=== PATIENT | male | born 1935 | race Caucasian/White ===

== ENCOUNTER 2017-02-07 09:45 | Observation (INO) | payer MEDICARE ==
[~2017-02-07] VITALS: Ht 180.3 cm; Wt 61.0 kg
[~2017-02-07 09:45] MED LIST: DICL75 PO; ESCI20TA PO; GABA400C5 PO; GLUCTAB PO; PROS5TAB2 PO; ROSU40 PO; TRAD5TAB PO; ULTR50TA PO
[2017-02-07 10:17] VITALS: BP 174/79; PULSE 83; RESP 18; TEMP 98.3; O2SAT 93
[2017-02-07] MEDS ORDERED: GABA300C5 PO (10:42)
[2017-02-07] MEDS ORDERED: FINA5TAB2 PO (10:42)
[2017-02-07] MEDS ORDERED: TRAM50TA PO (10:42)
[2017-02-07] MEDS ORDERED: ESCI20TA PO (10:45)
[2017-02-07] MEDS ORDERED: ROSU1TAB6 PO (10:45)
[2017-02-07] MEDS ORDERED: DICL75TA PO (10:45)
[2017-02-07] MEDS ORDERED: METF1000 PO (10:45)
[2017-02-07] MEDS ORDERED: TAMS0.4C4 PO (10:45)
[2017-02-07] MEDS: SODIUM CHLOR 0.9% 1000 ML INJ 1,000 ML IV SCH ×3 (10:48→13:03)
--- NOTE | 2017-02-07 10:58 | PD ---
HPI Chief Complaint: General Weakness Time Seen by Provider: 10:33 Travel History International Travel<30 days: No Contact w/Intl Traveler<30days: No Traveled to known affect area: No History of Present Illness HPI The patient is a 81-year-old male who presents to the emergency department for generalized weakness and multiple falls. 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 Robbins. The patient had a history of previous weakness and falls which improved after the shot was placed. The patient has had some weakness the last several days, they saw their physician on Friday, Dr. Harris, however, the patient is an related without difficulty at that time. However, cornea family the patient has fallen 7 times since last night and they found the patient on the floor this morning. The floor is carpeted, the patient denies any loss of consciousness. The patient complains of weakness the lower extremities and has difficulty going from a sitting to standing position it feels like his legs give out when he is ambulating. He denies any upper extremity weakness, but does complain of some generalized lethargy. He denies any current headache, nausea, vomiting, or abdominal pain. The patient denies any chest pain or shortness of breath. Symptoms are moderate, no known alleviating factors, possibly exacerbated by history of NPH which on placement. PFSH Past Medical History Arthritis: Yes Anxiety: Yes Depression: Yes Heart Rhythm Problems: No Cancer: Yes (MELANOMA ) Cardiovascular Problems: Yes (ARRHYTHMIA) High Cholesterol: Yes Chemotherapy: No Chest Pain: No Congestive Heart Failure: No Cerebrovascular Accident: No Diabetes: Yes (TYPE 2) Patient Takes Glucophage: Yes (METFORMIN ) Endocrine: Yes Genitourinary: No Hepatitis: No Immune Disorder: No Musculoskeletal: Yes (RIGHT KNEE REPLACEMENT) Neurologic: Yes (BALANCE DIFFICULTIES) Psychiatric: No Reproductive: No Respiratory: No Radiation Therapy: No Seizures: No Thyroid Disease: No Past Surgical History Surgical History: No Previous Surgery Abdominal Surgery: No AICD: No Cardiac Surgery: No Ear Surgery: No Endocrine Surgery: No Eye Surgery: Yes (BILATERAL CATARACT SURGERY ) Genitourinary Surgery: No Gynecologic Surgery: No Joint Replacement: Yes (RT KNEE) Oral Surgery: No Pacemaker: No Thoracic Surgery: No Other Surgery: Yes (R KNEE /CATARACT, SHUNT IN BRAIN ) Social History Alcohol Use: No (PT WAIFE STATES HE NO LONGER DRINKS ) Tobacco Use: No Substance Use: No Allergies-Medications (Allergen,Severity, Reaction): Coded Allergies: No Known Allergies (Verified , 02/07/17) Reported Meds & Prescriptions Reported Meds & Active Scripts Active Reported Tamsulosin (Tamsulosin HCl) 0.4 Mg Cap 0.4 Mg PO HS Escitalopram (Escitalopram Oxalate) 20 Mg Tab 20 Mg PO DAILY Diclofenac Sodium DR (Diclofenac Sodium) 75 Mg Tabdr 75 Mg PO BID Metformin (Metformin HCl) 1,000 Mg Tab 1,000 Mg PO BIDPC With meals Rosuvastatin (Rosuvastatin Calcium) 10 Mg Tab 10 Mg PO HS Gabapentin 300 Mg Cap 800 Mg PO TID Tramadol (Tramadol HCl) 50 Mg Tab 50 Mg PO Q6H PRN Finasteride 5 Mg Tab 5 Mg PO DAILY Do not crush. Review of Systems Except as stated in HPI: all other systems reviewed are Neg General / Constitutional: No: Fever Eyes: No: Visual changes HENT: No: Headaches, Lightheadedness, Neck Pain Cardiovascular: No: Chest Pain or Discomfort Respiratory: No: Shortness of Breath Gastrointestinal: No: Nausea, Vomiting, Abdominal Pain Musculoskeletal: Positive: Weakness Neurologic: Positive: Weakness Physical Exam Narrative GENERAL: Awake, alert, pleasant 81-year-old male who appears his stated age and is in no acute respiratory distress. SKIN: Focused skin assessment warm/dry. HEAD: Atraumatic. Normocephalic. No visible hematomas or areas of ecchymosis. EYES: Pupils equal and round. Pupils are 3 mm bilateral and reactive. ENT: No nasal bleeding or discharge. Mucous membranes pink and moist. NECK: Trachea midline. No JVD. CARDIOVASCULAR: Regular rate and rhythm. No murmur appreciated. RESPIRATORY: No accessory muscle use. Clear to auscultation. Breath sounds equal bilaterally. GASTROINTESTINAL: Abdomen soft, non-tender, nondistended. No rebound tenderness. MUSCULOSKELETAL: Well-healed scar of the anterior aspect of the right knee. Plantar flexion is 5 out of 5 bilateral. Flexion of the great toes is 5 out of 5 bilateral. Extension at the knees bilateral is 5 out of 5. Flexion of the hips bilaterals 5 out of 5. Upper 70 strength is 5 out of 5. NEUROLOGICAL: Awake and alert. No obvious cranial nerve deficits. Motor grossly within normal limits. Normal speech. Nonfocal. Oriented 4. PSYCHIATRIC: Appropriate mood and affect; insight and judgment normal. Data Data Last Documented VS Vital Signs Date Time Temp Pulse Resp B/P Pulse Ox O2 Delivery O2 Flow Rate FiO2 02/07/17 10:23 84 18 92 Room Air 02/07/17 10:17 98.3 174/79 Orders Electrocardiogram (02/07/17 10:48) Complete Blood Count With Diff (02/07/17 10:48) Comprehensive Metabolic Panel (02/07/17 10:48) Creatine Kinase (Cpk) (02/07/17 10:48) Prothrombin Time / Inr (Pt) (02/07/17 10:48) Act Partial Throm Time (Ptt) (02/07/17 10:48) Troponin I (02/07/17 10:48) Thyroid Stimulating Hormone (02/07/17 10:48) Urinalysis - C+S If Indicated (02/07/17 10:48) Chest, Single Ap (02/07/17 10:48) Ct Brain W/O Iv Contrast(Rout) (02/07/17 10:48) Blood Glucose (02/07/17 10:48) Ecg Monitoring (02/07/17 10:48) Iv Access Insert/Monitor (02/07/17 10:48) Oximetry (02/07/17 10:48) Sodium Chloride 0.9% Flush (Ns Flush) (02/07/17 11:00) Sodium Chlor 0.9% 1000 Ml Inj (Ns 1000 M (02/07/17 10:48) CKMB (02/07/17 11:03) CKMB% (02/07/17 11:03) Sodium Chlor 0.9% 1000 Ml Inj (Ns 1000 M (02/07/17 12:00) Admit To Inpatient (02/07/17 ) Code Status (02/07/17 12:37) Vital Signs (Adult) Q4H (02/07/17 12:37) Activity Oob With Assistance (02/07/17 12:37) Sodium Chloride 0.9% Flush (Ns Flush) (02/07/17 12:45) Sodium Chloride 0.9% Flush (Ns Flush) (02/07/17 21:00) Acetaminophen (Tylenol) (02/07/17 12:45) Ondansetron Inj (Zofran Inj) (02/07/17 12:45) Magnesium Hydroxide Liq (Milk Of Magnesi (02/07/17 12:45) Temazepam (Restoril) (02/07/17 12:45) Basic Metabolic Panel (Bmp) (02/08/17 06:00) Complete Blood Count With Diff (02/08/17 06:00) Pt Request For Service (02/07/17 12:37) Scd Bilateral/Knee High ANGEL LUIS.BID (02/07/17 12:37) Naloxone Inj (Narcan Inj) (02/07/17 12:45) Inpatient Certification (02/07/17 ) Diet 1999 Ada Cons Carb (02/07/17 Lunch) 1/2 Ns + Kcl 20 Meq Inj (1/2 Ns + Kcl 20 (02/07/17 13:00) Creatine Kinase (Cpk) (02/08/17 06:00) Consult Neurosurgery (02/07/17 ) Escitalopram (Lexapro) (02/08/17 09:00) Finasteride (Proscar) (02/08/17 09:00) Gabapentin (Neurontin) (02/07/17 13:00) Tamsulosin (Flomax) (02/07/17 21:00) (Nf) Rosuvastatin (02/07/17 21:00) Insulin Aspart Supplemtl Scale (Novolog (02/07/17 16:00) Gabapentin (Neurontin) (02/07/17 13:00) Labs Laboratory Tests Test 02/07/17 02/07/17 11:03 12:15 White Blood Count 5.9 TH/MM3 Red Blood Count 2.94 MIL/MM3 Hemoglobin 9.4 GM/DL Hematocrit 27.7 % Mean Corpuscular Volume 94.0 FL Mean Corpuscular Hemoglobin 31.9 PG Mean Corpuscular Hemoglobin 33.9 % Concent Red Cell Distribution Width 14.3 % Platelet Count 177 TH/MM3 Mean Platelet Volume 8.8 FL Neutrophils (%) (Auto) 68.5 % Lymphocytes (%) (Auto) 19.6 % Monocytes (%) (Auto) 8.5 % Eosinophils (%) (Auto) 2.7 % Basophils (%) (Auto) 0.7 % Neutrophils # (Auto) 4.0 TH/MM3 Lymphocytes # (Auto) 1.2 TH/MM3 Monocytes # (Auto) 0.5 TH/MM3 Eosinophils # (Auto) 0.2 TH/MM3 Basophils # (Auto) 0.0 TH/MM3 CBC Comment DIFF FINAL Differential Comment Prothrombin Time 10.9 SEC Prothromb Time International 1.0 RATIO Ratio Activated Partial 22.9 SEC Thromboplast Time Sodium Level 139 MEQ/L Potassium Level 4.8 MEQ/L Chloride Level 104 MEQ/L Carbon Dioxide Level 28.3 MEQ/L Anion Gap 7 MEQ/L Blood Urea Nitrogen 43 MG/DL Creatinine 2.32 MG/DL Estimat Glomerular Filtration 27 ML/MIN Rate Random Glucose 134 MG/DL Calcium Level 9.2 MG/DL Total Bilirubin 0.3 MG/DL Aspartate Amino Transf 44 U/L (AST/SGOT) Alanine Aminotransferase 32 U/L (ALT/SGPT) Alkaline Phosphatase 30 U/L Total Creatine Kinase 1828 U/L Creatine Kinase MB 11.1 NG/ML Creatine Kinase MB % 0.6 % Troponin I 0.09 NG/ML Total Protein 6.1 GM/DL Albumin 3.6 GM/DL Thyroid Stimulating Hormone 3.920 uIU/ML 3rd Gen Urine Color YELLOW Urine Turbidity CLEAR Urine pH 6.5 Urine Specific [place] 1.012 Urine Protein 100 mg/dL Urine Glucose (UA) TRACE mg/dL Urine Ketones NEG mg/dL Urine Occult Blood SMALL Urine Nitrite NEG Urine Bilirubin NEG Urine Urobilinogen LESS THAN 2.0 MG/DL Urine Leukocyte Esterase NEG Urine RBC 1 /hpf Urine WBC 2 /hpf Microscopic Urinalysis Comment CATH-CULT NOT IND MDM Medical Decision Making Medical Screen Exam Complete: Yes Emergency Medical Condition: Yes Medical Record Reviewed: Yes Interpretation(s) EKG reveals normal sinus rhythm with a rate of 75. Nonspecific ST-T wave changes. Differential Diagnosis Differential diagnosis includes normal pressure hydrocephalus, polymyalgia rheumatica, hyponatremia, UTI, pneumonia, subdural hemorrhage, intracranial hemorrhage, dehydration. Narrative Course IV was established, labs are drawn and sent, and the patient was placed on cardiac telemetry monitoring and continuous pulse oximetry monitoring. EKG was ordered and interpreted. CT of the brain was obtained. Chest x-ray was obtained. UA was sent to lab. The patient was placed on IV fluids. The patient's CPK was noted to be elevated greater than 1800, creatinine was elevated greater than 2.3. It appears the patient has mild renal insufficiency with secondary rhabdomyolysis, unsure if this is secondary to multiple falls or possibly statin therapy. Therefore, the patient was administered an IV fluid bolus. The patient's troponin is 0.09, this may be secondary to rhabdomyolysis. The patient has [facility], therefore, [facility] was paged for admission. Physician Communication Physician Communication [facility] was paged for admission. I discussed the patient with Dr. Stanton who agrees with admission. Diagnosis Primary Impression: Rhabdomyolysis Qualified Code: M62.82 - Non-traumatic rhabdomyolysis Additional Impression: Acute kidney injury Admitting Information Admitting Physician Requests: Admit Condition: Stable Louie Solorzano MD Feb 07, 2017 10:57
[2017-02-07] MEDS ORDERED: SODIUM CHLORIDE 0.9% FLUSH 10 ML FLUSH IVF PRN (11:00)
[2017-02-07 11:17] LABS: BASOPHIL % 0.7 % (0.0-2.0); EOSINOPHIL # 0.2 TH/MM3 (0-0.4); EOSINOPHIL % 2.7 % (0.0-4.0); HEMATOCRIT 27.7 % (39.0-51.0); HEMO FLAGS DIFF FINAL; LYMPH % 19.6 % (9.0-44.0); LYMPHOCYTE # 1.2 TH/MM3 (1.0-4.8); MEAN CORPUSCULAR HEMOGLOBIN 31.9 PG (27.0-34.0); MEAN CORPUSCULAR HGB CONC 33.9 % (32.0-36.0); MONO % 8.5 % (0.0-8.0); NEUT % 68.5 % (16.0-70.0); PLATELET COUNT 177 TH/MM3 (150-450); RED BLOOD COUNT 2.94 MIL/MM3 (4.50-5.90); RED CELL DISTRIBUTION WIDTH 14.3 % (11.6-17.2); WHITE BLOOD COUNT 5.9 TH/MM3 (4.0-11.0)
[2017-02-07 11:24] LABS: APTT (PATIENT) 22.9 SEC (24.3-30.1); PROTHROMBIN TIME - PATIENT 10.9 SEC (9.8-11.6)
[2017-02-07 11:29] LABS: ANION GAP 7 MEQ/L (5-15); AST (GOT) 44 U/L (15-37); BICARBONATE 28.3 MEQ/L (21.0-32.0); BLOOD UREA NITROGEN 43 MG/DL (7-18); CHLORIDE 104 MEQ/L (98-107); GLOMERULAR FILTRATION RATE 27 ML/MIN (>89); POTASSIUM 4.8 MEQ/L (3.5-5.1); SODIUM (NA) 139 MEQ/L (136-145)
--- NOTE | 2017-02-07 11:32 | RADRPT ---
EXAM DATE/TIME: 02/07/2017 10:56 [facility] COMPARISON: CHEST SINGLE AP, February 21, 2015, 16:27. INDICATIONS : Weakness, falling alot MEDICAL HISTORY : None. SURGICAL HISTORY : None. ENCOUNTER: Initial ACUITY: 1 day PAIN SCORE: 0/10 LOCATION: Bilateral chest FINDINGS: A single view of the chest demonstrates the lungs to be symmetrically aerated without evidence of mas s, infiltrate or effusion. The cardiomediastinal contours are unremarkable. Osseous structures are intact. Catheter tubing overlies the right neck chest and upper abdomen. CONCLUSION: Hyperinflation. Clear lungs. Shadi Jimenez MD on February 07, 2017 at 11:31 Board Certified Radiologist. This report was verified electronically.
[2017-02-07 11:44] LABS: ALKALINE PHOSPHATASE 30 U/L (45-117); ALT (GPT) 32 U/L (12-78); CREATINE KINASE 1828 U/L (39-308); TOTAL BILIRUBIN ADULT 0.3 MG/DL (0.2-1.0)
[2017-02-07 11:57] LABS: CKMB 11.1 NG/ML (0.5-3.6)
[2017-02-07] MEDS ORDERED: SODIUM CHLOR 0.9% 1000 ML INJ 1,000 ML IV ONE (12:00)
--- NOTE | 2017-02-07 12:04 | RADRPT ---
EXAM DATE/TIME: 02/07/2017 11:30 [facility] COMPARISON: CT BRAIN W/O CONTRAST, February 24, 2015, 8:38. INDICATIONS : Weakness. RADIATION DOSE: 46.30 CTDIvol (mGy) MEDICAL HISTORY : Cardiovascular disease. Diabetes mellitus type 2. SURGICAL HISTORY : Shunt ENCOUNTER: Initial ACUITY: 1 day PAIN SCALE: 2/10 LOCATION: cranial TECHNIQUE: Multiple contiguous axial images were obtained of the head. Using automated exposure control and adj ustment of the mA and/or kV according to patient size, radiation dose was kept as low as reasonably a chievable to obtain optimal diagnostic quality images. FINDINGS: CEREBRUM: A. ventricular system is moderately distended but otherwise stable. A right frontal ventriculostomy t ube is in stable position. There is no subacute infarct or hemorrhage. Mild diffuse hypodensity is se en throughout the cerebral white matter. POSTERIOR FOSSA: The cerebellum and brainstem are intact. The 4th ventricle is midline. The cerebellopontine angle i s unremarkable. EXTRACRANIAL: The visualized portion of the orbits is intact. SKULL: The calvaria is intact. No evidence of skull fracture. CONCLUSION: Stable ventriculoperitoneal shunt No evidence of hydrocephalus, acute infarct, hemorrhage, mass effect or edema. 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 Tobi Keenan MD on February 07, 2017 at 12:00 Board Certified Radiologist. This report was verified electronically.
[2017-02-07 12:34] LABS: BLOOD, URINE SMALL (NEG); COMMENT (UR) CATH-CULT NOT IND; CULTURE IF INDICATED CATH CULTURE NOT IND; GLUCOSE,URINE TRACE mg/dL (NEG); KETONE, URINE NEG (NEG); NITRITE,URINE NEG (NEG); PH, URINE 6.5 (5.0-8.5); URINE COLOR YELLOW (YELLW/STRAW)
[2017-02-07] MEDS ORDERED: TEMAZEPAM 15 MG CAP PO PRN (12:45)
[2017-02-07] MEDS ORDERED: NALOXONE HCL 0.4 MG/ML AMP IV PRN (12:45)
[2017-02-07] MEDS ORDERED: SODIUM CHLORIDE 0.9% FLUSH 10 ML FLUSH IV FLUSH PRN (12:45)
[2017-02-07] MEDS ORDERED: ONDANSETRON HCL 4 MG/2 ML VIAL IVP PRN (12:45)
[2017-02-07] MEDS ORDERED: MAGNESIUM HYDROXIDE SUSP 30 ML CUP PO PRN (12:45)
[2017-02-07] MEDS ORDERED: ACETAMINOPHEN 325 MG TAB PO PRN (12:45)
[2017-02-07] MEDS ORDERED: GABAPENTIN 300 MG CAP PO SCH (13:00)
--- NOTE | 2017-02-07 13:07 | PD.CONS ---
HPI Service neurosurgery, Consult Requested By Dr Tenorio Reason for Consult suspected NAPPING MACHINE OPERATOR shunt malfunction Primary Care Physician Young Harris MD History of Present Illness Disease 81 -year-old male with history of dementia, NPH - s/p VPS and BPH. He has history of ventriculoperitoneal shunt placement by with good results. He presented to [place] emergency room with c/o worsening LE weakness. He reports recurrent falls at home. Denies headaches masses or vomiting. He denies fever or chills he does no seizure activity noted. There was not tongue biting. There was no incontinence of stool. He reports urinary incontinence and poor memory. His family is concerned of possible NAPPING MACHINE OPERATOR shunt malfunction. Admitted to [facility] for further evaluation and treatment. Neurosurgical consultation was requested Review of Systems BALANCE DIFFICULTIES Endocrine: DENIES: Heat/cold intolerance, Polydipsia, Polyuria, Polyphagia Eyes: DENIES: Blurred vision, Diplopia, Eye inflammation, Eye pain, Vision loss , Photosensitivity, Double Vision Cardiovascular: DENIES: Chest pain, Palpitations, Syncope, Dyspnea on Exertion , PND, Lower Extremity Edema, Orthopnea, Claudication Gastrointestinal: DENIES: Abdominal pain, Black stools, Bloody stools, Constipation, Diarrhea, Nausea, Vomiting, Difficulty Swallowing, Anorexia Genitourinary: COMPLAINS OF: Urinary incontinence, Urgency, DENIES: Sexual dysfunction, Urinary frequency, Hematuria, Dysuria, Nocturia, Penile Discharge, Testicular Pain, Testicular Swelling Musculoskeletal: DENIES: Joint pain, Muscle aches, Stiffness, Joint Swelling, Back pain, Neck pain Integumentary: DENIES: Abnormal pigmentation, Nail changes, Pruritus, Rash Hematologic/lymphatic: DENIES: Bruising, Lymphadenopathy Immunologic/allergic: DENIES: Eczema, Urticaria Neurologic: COMPLAINS OF: Localized weakness, DENIES: Abnormal gait, Headache , Paresthesias, Seizures, Speech Problems, Tremor, Poor Balance Psychiatric: DENIES: Anxiety, Confusion, Mood changes, Depression, Hallucinations, Agitation, Suicidal Ideation, Homicidal Ideation, Delusions Past Family Social History Allergies: Coded Allergies: No Known Allergies (Verified , 02/07/17) Past Medical History Arthritis Anxiety Depression MELANOMA ARRHYTHMIA High Cholesterol Diabetes Past Surgical History BILATERAL CATARACT SURGERY RT KNEE REPLACEMENT NAPPING MACHINE OPERATOR SHUNT IN BRAIN Reported Medications Tamsulosin (Tamsulosin HCl) 0.4 Mg Cap 0.4 Mg PO HS Escitalopram (Escitalopram Oxalate) 20 Mg Tab 20 Mg PO DAILY Diclofenac Sodium DR (Diclofenac Sodium) 75 Mg Tabdr 75 Mg PO BID Metformin (Metformin HCl) 1,000 Mg Tab 1,000 Mg PO BIDPC With meals Rosuvastatin (Rosuvastatin Calcium) 10 Mg Tab 10 Mg PO HS Gabapentin 300 Mg Cap 800 Mg PO TID Tramadol (Tramadol HCl) 50 Mg Tab 50 Mg PO Q6H PRN Finasteride 5 Mg Tab 5 Mg PO DAILY Do not crush. Active Ordered Medications Current Medications Sodium Chloride 2 ml 2 ml UNSCH PRN IVF FLUSH AFTER USING IV ACCESS; Start at 11:00; Stop 02/07/17 at 12:43; Status DC Sodium Chloride 1,000 ml @ 125 mls/hr Q8H IV ; Start 02/07/17 at 10:48; Stop at 18:47 Sodium Chloride (NS 1000 ml Inj) 1,000 ml @ 999 mls/hr BOLUS ONCE IV Last administered on 02/07/17t 12:23; Start 02/07/17 at 12:00; Stop 02/07/17 at 13:00 ; Status DC Sodium Chloride (NS Flush) 2 ml UNSCH PRN IV FLUSH FLUSH AFTER USING IV ACCESS ; Start 02/07/17 at 12:45 Sodium Chloride (NS Flush) 2 ml BID IV FLUSH ; Start 02/07/17 at 21:00 Acetaminophen (Tylenol) 650 mg Q4H PRN PO TEMP > 100.4; Start 02/07/17 at 12:45 Ondansetron HCl (Zofran Inj) 4 mg Q6H PRN IVP NAUSEA OR VOMITING; Start at 12:45 Magnesium Hydroxide (Milk Of Magnesia Liq) 30 ml Q12H PRN PO CONSTIPATION; Start 02/07/17 at 12:45 Temazepam (Restoril) 15 mg HS PRN PO INSOMNIA; Start 02/07/17 at 12:45 Naloxone HCl 0.4 mg 0.4 mg UNSCH PRN IV SEE LABEL COMMENTS; Start 02/07/17 at 12:45 Potassium Chloride/Sodium Chloride (1/2 NS + KCl 20 Meq Inj) 1,000 ml @ 84 mls/ hr [id number] IV Last administered on 02/07/17 14:27; Start 02/07/17 at 13:00 Escitalopram Oxalate (Lexapro) 20 mg DAILY PO ; Start 02/08/17 at 09:00 Finasteride (Proscar) 5 mg DAILY PO ; Start 02/08/17 at 09:00 Gabapentin (Neurontin) 800 mg TID PO ; Start 02/07/17 at 13:00; Stop 02/07/17 at 13:00; Status DC Tamsulosin HCl (Flomax) 0.4 mg HS PO ; Start 02/07/17 at 21:00 Non-Formulary Medication 10 mg HS PO ; Start 02/07/17 at 21:00; Stop 02/07/17 at 21:00; Status DC Gabapentin (Neurontin) 200 mg TID PO Last administered on 02/07/17 14:27; Start 02/07/17 at 13:00 Insulin Aspart (NovoLOG SUPPLEMENTAL SCALE) 1 ACHS SLIDING SCALE SQ ; Start at 16:00 Iohexol (Omnipaque 300 Inj) 9 ml STK-MED ONCE .XX Last administered on 14:56; Start 02/07/17 at 14:56; Stop 02/07/17 at 15:15; Status DC Family History Non contributory Social History Alcohol Use: No ( STATES HE NO LONGER DRINKS ) Tobacco Use: No Substance Use: No Physical Exam Vital Signs Vital Signs Date Time Temp Pulse Resp B/P Pulse Ox O2 Delivery O2 Flow Rate FiO2 02/07/17 10:23 84 18 92 Room Air 02/07/17 10: 98.3 83 18 174/79 93 Physical Exam The patient is alert, awake and oriented to time, place and person. Speech is fluent. Cranial nerve examination demonstrates the pupils to be equal, round, and reactive to light. Extra-ocular movements are intact. Facial motor and sensory function are normal and symmetrical. Gross hearing is intact, bilaterally. The uvula is midline and elevates symmetrically with the soft palate. Sternocleidomastoid and trapezius muscles have normal and symmetrical strength. Other cranial nerves are intact. Sunt palpable. Depresses easily and refills promptly Neck is soft and supple. Cervical spine has a good range of motion in anterior flexion, extension, lateral bending, and rotation without pain. There is no tenderness to palpation to the spinous processes or paraspinal muscles. Muscle testing reveals normal bulk and tone overall without rigidity, spasticity , fasciculations, or atrophy. 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 In the lower extremities, strength is 5/5 in both iliopsoas, quadriceps, hamstrings, plantar flexion, dorsiflexion, and extensor hallicus longus. Sensory examination is intact to light touch and sharp/dull discrimination in both the upper and lower extremities, symmetrically. Deep tendon reflexes are 1+ and symmetrical in the biceps, triceps, and brachioradialis, bilaterally, in the upper extremities. In the lower extremities , the patellar and Achilles are 1+, bilaterally. There is a bilateral plantar flexion response. Hoffmanns sign is negative. There is no clonus Cerebellar examination is intact to [id number] test, rapid rhythmic alternating motion. Laboratory Laboratory Tests Test 02/07/17 02/07/17 11:03 12:15 White Blood Count 5.9 Red Blood Count 2.94 Hemoglobin 9.4 Hematocrit 27.7 Mean Corpuscular Volume 94.0 Mean Corpuscular Hemoglobin 31.9 Mean Corpuscular Hemoglobin 33.9 Concent Red Cell Distribution Width 14.3 Platelet Count 177 Mean Platelet Volume 8.8 Neutrophils (%) (Auto) 68.5 Lymphocytes (%) (Auto) 19.6 Monocytes (%) (Auto) 8.5 Eosinophils (%) (Auto) 2.7 Basophils (%) (Auto) 0.7 Neutrophils # (Auto) 4.0 Lymphocytes # (Auto) 1.2 Monocytes # (Auto) 0.5 Eosinophils # (Auto) 0.2 Basophils # (Auto) 0.0 CBC Comment DIFF FINAL Differential Comment Prothrombin Time 10.9 Prothromb Time International 1.0 Ratio Activated Partial 22.9 Thromboplast Time Sodium Level 139 Potassium Level 4.8 Chloride Level 104 Carbon Dioxide Level 28.3 Anion Gap 7 Blood Urea Nitrogen 43 Creatinine 2.32 Estimat Glomerular Filtration 27 Rate Random Glucose 134 Calcium Level 9.2 Total Bilirubin 0.3 Aspartate Amino Transf 44 (AST/SGOT) Alanine Aminotransferase 32 (ALT/SGPT) Alkaline Phosphatase 30 Total Creatine Kinase 1828 Creatine Kinase MB 11.1 Creatine Kinase MB % 0.6 Troponin I 0.09 Total Protein 6.1 Albumin 3.6 Thyroid Stimulating Hormone 3.920 3rd Gen Urine Color YELLOW Urine Turbidity CLEAR Urine pH 6.5 Urine Specific [place] 1.012 Urine Protein 100 Urine Glucose (UA) TRACE Urine Ketones NEG Urine Occult Blood SMALL Urine Nitrite NEG Urine Bilirubin NEG Urine Urobilinogen LESS THAN 2.0 Urine Leukocyte Esterase NEG Urine RBC 1 Urine WBC 2 Microscopic Urinalysis Comment CATH-CULT NOT IND Result Diagram: 02/07/17 1103 02/07/17 1103 Imaging Last Impressions Head CT 02/07/17 1048 Signed Impressions: Service Date/Time: Tuesday, February 07, 2017 11:30 - CONCLUSION: Stable ventriculoperitoneal shunt No evidence of hydrocephalus, acute infarct, hemorrhage, mass effect or edema. Cerebral white matter disease characteristic of mild to moderate chronic microvascular ischemic changes. Tobi Keenan MD Chest X-Ray 02/07/17 1048 Signed Impressions: Service Date/Time: Tuesday, February 07, 2017 10:56 - CONCLUSION: Hyperinflation. Clear lungs. Shadi Jimenez MD Attending Statement I have reviewed his clinical and radiological studies. Start neuro checks in a serial fashion. Recommend shunt setries and a shuntogram and a shuntogram to evaluate whether his shunt is working Consult interventional radiology for shuntogram. Respiratory. pulmonary toilette, nasotracheal suction, and breathing treatments with nebulizers. PT and OT eval Nutrition. Oral diet Renal. monitor closely urine output, BUN and creatinine Endocrine. Monitor serial Acu checks and SSI for tight control ID monitor for signs of infection Protonix for stress ulcer prophylaxis Miguelito shaka and SCD's for DVT prophylaxis Robert Colmenares MD Feb 07, 2017 13:07
[2017-02-07] MEDS: GABAPENTIN 100 MG CAP PO SCH ×2 (14:27→17:46)
[2017-02-07] MEDS: 1/2 NS + KCL 20 MEQ INJ 1,000 ML IV SCH ×2 (14:27→21:22)
--- NOTE | 2017-02-07 14:48 | RADRPT ---
EXAM DATE/TIME: 02/07/2017 13:38 [facility] COMPARISON: No previous studies available for comparison. INDICATIONS : Shunt series, pt c/o falling. MEDICAL HISTORY : None. SURGICAL HISTORY : shunt in his 70's. ENCOUNTER: Initial ACUITY: 1 day PAIN SCORE: 0/10 LOCATION: Bilateral shunt series FINDINGS: 6 views of the head, neck, chest, and abdomen document a right frontal BRANCH MANAGER TRAINEE shunt in place with tip mariela r the midline. Shunt tubing courses along the right neck, right chest wall, and right abdomen and ter minates in the right midabdomen. No mass effect is visualized around the tip of the shunt. It appears intact throughout its course. Visualized running structures demonstrate no acute finding. The lungs are clear. No acute abdominal a bnormality is seen. There is dextroscoliosis of the lumbar spine and there are degenerative changes t hroughout the cervical, thoracic, and lumbar spine. CONCLUSION: Intact BRANCH MANAGER TRAINEE shunt tubing which terminates in the right midabdomen. Henrry Garnett MD on February 07, 2017 at 14:44 Board Certified Radiologist. This report was verified electronically.
[2017-02-07] MEDS ORDERED: IOHEXOL 300 MG/ML 50 ML BTL (for RAD DIAG) ONE (14:56)
--- NOTE | 2017-02-07 15:28 | PD.RAD ---
Post Procedure Progress Note Pre Procedure Diagnosis: (1) NPH (normal pressure hydrocephalus) Post Procedure Diagnosis: (1) NPH (normal pressure hydrocephalus) Procedure Date: Feb 07, 2017 Supervising Radiologist: Tobi Keenan Proceduralist/Assist: Trixie Painter RT(R), Laura Mejia RT(R)(CV) Plan of Activity Patient to Unit: Other Patient Condition: Good See PACS Report for procedural detail/treatment Imaging Evaluation Shuntogram Findings: Tobi Trinidad MD Feb 07, 2017 15:28
--- NOTE | 2017-02-07 15:43 | RADRPT ---
EXAM DATE/TIME: 02/07/2017 15:41 [place] COMPARISON: No previous studies available for comparison. INDICATIONS : Patient with gerneral weakness, fell seven times last night in need of shuntogram. MEDICAL HISTORY : Normal pressure hydrocephalus Diabetes Arthritis Anxiety Depression Cardiac arrhythmia Hypercholesterolemia Balance difficulties SURGICAL HISTORY : Shunt placement Bilateral cataract surgery RT knee surgery ENCOUNTER: Initial ACUITY: 1 day PAIN SCORE: 0/10 FLUORO TIME: 3.0 minutes IMAGE SERIES: 4 CONTRAST: 9 cc Omnipaque (iohexol) 300 PROCEDURE : 1. Fluoroscopically guided shuntogram. The risks, benefits and alternatives to the procedure were explained and verbal and written consent w as obtained. The site was prepped in sterile fashion. Full sterile technique was used, including ca p, mask, sterile gloves and gown and a large sterile sheet. Hand hygiene and 2% chlorhexidine and/or betadine/alcohol prep was utilized per protocol for cutaneous antisepsis. The skin and subcutaneous tissues were infiltrated with local anesthetic solution. With fluoroscopic guidance the previously placed shunt was injected with a 23 gauge butterfly needle and positive contrast was injected. Multiple pumps for the reservoir revealed flow of contrast into the ventricular system as well as thr ough the ventriculoperitoneal shunt into the abdomen. CONCLUSION: Patent shunt. Tobi Keenan MD on February 07, 2017 at 15:40 Board Certified Radiologist. This report was verified electronically.
[2017-02-07 16:00] VITALS: BP 158/83; PULSE 79; RESP 18; TEMP 98.9; O2SAT 94
[2017-02-07] MEDS: INSULIN ASPART SUPPLEMENTAL SCALE SQ SCH ×3 (16:00→21:22)
--- NOTE | 2017-02-07 18:31 | HHI.PR ---
Subjective Remarks Pt is a pleasant 81 y/o M with h/o dementia, NPH - s/p VPS and BPH. Pt presented to [place] with c/o worsening LE weakness. Patient complained of recurrent falls at home. Family concerned of possible PHYSICIAN SCIENTIST shunt malfunction. Patients CK elevated at 1828. CT head (02/07/17) showed no acute findings. Patient admitted to [facility] for further evaluation and treatment. Objective Vitals Vital Signs Date Time Temp Pulse Resp B/P Pulse Ox O2 Delivery O2 Flow Rate FiO2 02/07/17 16:00 98.9 79 18 158/83 94 02/07/17 10:23 84 18 92 Room Air 02/07/17 10:17 98.3 83 18 174/79 93 Result Diagram: 02/07/17 1103 02/07/17 1103 Imaging Last Impressions Head CT 02/07/17 1048 Signed Impressions: Service Date/Time: Tuesday, February 07, 2017 11:30 - CONCLUSION: Stable ventriculoperitoneal shunt No evidence of hydrocephalus, acute infarct, hemorrhage, mass effect or edema. Cerebral white matter disease characteristic of mild to moderate chronic microvascular ischemic changes. Tobi Keenan MD Chest X-Ray 02/07/17 1048 Signed Impressions: Service Date/Time: Tuesday, February 07, 2017 10:56 - CONCLUSION: Hyperinflation. Clear lungs. Shadi Jimenez MD Shunt Study (Imaging) 02/07/17 0000 Signed Impressions: Service Date/Time: Tuesday, February 07, 2017 13:38 - CONCLUSION: Intact PHYSICIAN SCIENTIST shunt tubing which terminates in the right midabdomen. Henrry Garnett MD Shunt Study 02/07/17 0000 Signed Impressions: Service Date/Time: Tuesday, February 07, 2017 15:41 - CONCLUSION: Patent shunt. Tobi Keenan MD Objective Remarks GENERAL: This is a well-nourished, well-developed patient, in no apparent distress. CARDIOVASCULAR: Regular rate and rhythm without murmurs, gallops, or rubs. RESPIRATORY: Clear to auscultation. Breath sounds equal bilaterally. No wheezes , rales, or rhonchi. GASTROINTESTINAL: Abdomen soft, non-tender, nondistended. Normal active bowel sounds MUSCULOSKELETAL: Extremities without clubbing, cyanosis, or edema. NEURO: Alert & Oriented x3, but confused at times. MELCHOR. A/P Problem List: (1) Generalized weakness Status: Acute Plan: - Patient with worsening weakness and recurrent falls at home - CK elevated at 1828 - Patient with history of normal pressure hydrocephalus. Patient had PHYSICIAN SCIENTIST shunt placed by Dr. Robbins 2014 - PT - Will need SNF upon discharge - comgmt with Neurosurgery. Case d/w Dr. Colmenares - Shuntogram (02/07/17) --> no evidence of shunt malfunction (2) NPH (normal pressure hydrocephalus) Status: Acute Plan: - see above (3) Rhabdomyolysis Status: Acute Plan: - continue IVFs - observe renal function - observe CK (4) DM2 (diabetes mellitus, type 2) Status: Acute Plan: - hold metformin - SSI (5) BPH (benign prostatic hyperplasia) Status: Chronic Plan: - continue outpt medications Problem Qualifiers (1) Rhabdomyolysis: Qualified Code: M62.82 - Non-traumatic rhabdomyolysis (2) DM2 (diabetes mellitus, type 2): (3) BPH (benign prostatic hyperplasia): Cortes Stanton DO Feb 07, 2017 18:31
--- NOTE | 2017-02-07 18:32 | HHI.HP ---
HPI Service [facility] Hospitalists Primary Care Physician Young Harris MD Admission Diagnosis rhabdomyolysis, acute kidney injury, multiple falls Chief Complaint: weakness, falls Travel History International Travel<30 Days: No Contact w/Intl Traveler <30 Da: No Traveled to Known Affected Are: No History of Present Illness Pt is a pleasant 81 y/o M with h/o dementia, NPH - s/p VPS and BPH. Pt presented to [place] with c/o worsening LE weakness. Patient complained of recurrent falls at home. Family concerned of possible CRANE LADLE PERSON shunt malfunction. Patients CK elevated at 1828. CT head (02/07/17) showed no acute findings. Patient admitted to [facility] for further evaluation and treatment. Review of Systems Constitutional: DENIES: Diaphoretic episodes, Fatigue, Fever, Weight gain, Weight loss, Chills, Dizziness, Change in appetite, Night Sweats Endocrine: DENIES: Heat/cold intolerance, Polydipsia, Polyuria, Polyphagia Eyes: DENIES: Blurred vision, Diplopia, Eye inflammation, Eye pain, Vision loss , Photosensitivity, Double Vision Ears, nose, mouth, throat: DENIES: Tinnitus, Hearing loss, Vertigo, Nasal discharge, Oral lesions, Throat pain, Hoarseness, Ear Pain, Running Nose, Epistaxis, Sinus Pain, Toothache, Odynophagia Respiratory: DENIES: Apneas, Cough, Snoring, Wheezing, Hemoptysis, Sputum production, Shortness of breath Cardiovascular: DENIES: Chest pain, Palpitations, Syncope, Dyspnea on Exertion , PND, Lower Extremity Edema, Orthopnea, Claudication Gastrointestinal: DENIES: Abdominal pain, Black stools, Bloody stools, BRB per rectum, Constipation, Diarrhea, GERD, Nausea, Reflux, Vomiting, Difficulty Swallowing, Anorexia Genitourinary: DENIES: Urinary frequency, Urinary incontinence, Urgency, Hematuria, Dysuria, Nocturia Musculoskeletal: DENIES: Joint pain, Muscle aches, Stiffness, Joint Swelling, Back pain, Neck pain Integumentary: DENIES: Abnormal pigmentation, Nail changes, Pruritus, Rash Hematologic/lymphatic: DENIES: Bruising, Lymphadenopathy Immunologic/allergic: DENIES: Eczema, Urticaria Neurologic: COMPLAINS OF: Abnormal gait, DENIES: Headache, Localized weakness , Paresthesias, Seizures, Speech Problems, Tremor, Poor Balance Psychiatric: DENIES: Anxiety, Confusion, Mood changes, Depression, Hallucinations, Agitation, Suicidal Ideation, Homicidal Ideation, Delusions, History of Bipolar, History of Schizophrenia Past Family Social History Past Medical History 1) hypertension 2) normal pressure hydrocephalus, status post ventriculoperitoneal shunt by Dr. Robbins 2014 3) lumbar degenerative disc disease 4) BP H 5) diabetes, type II 6) hyperlipidemia Past Surgical History 1) right total knee replacement, performed by Dr. Yung 11/2010 2) CRANE LADLE PERSON shunt placed for NPH by Dr. Robbins 02/2015 Reported Medications Reported Meds & Active Scripts Active Reported Tamsulosin (Tamsulosin HCl) 0.4 Mg Cap 0.4 Mg PO HS Escitalopram (Escitalopram Oxalate) 20 Mg Tab 20 Mg PO DAILY Diclofenac Sodium DR (Diclofenac Sodium) 75 Mg Tabdr 75 Mg PO BID Metformin (Metformin HCl) 1,000 Mg Tab 1,000 Mg PO BIDPC With meals Rosuvastatin (Rosuvastatin Calcium) 10 Mg Tab 10 Mg PO HS Gabapentin 300 Mg Cap 800 Mg PO TID Tramadol (Tramadol HCl) 50 Mg Tab 50 Mg PO Q6H PRN Finasteride 5 Mg Tab 5 Mg PO DAILY Do not crush. Allergies: Coded Allergies: No Known Allergies (Verified , 02/07/17) Family History Noncontributory Social History - - Nonsmoker - Alcoholic beverage 2-3 times a week - No illicit street drugs Physical Exam Vital Signs Vital Signs Date Time Temp Pulse Resp B/P Pulse Ox O2 Delivery O2 Flow Rate FiO2 02/07/17 16:00 98.9 79 18 158/83 94 02/07/17 10:23 84 18 92 Room Air 02/07/17 10:17 98.3 83 18 174/79 93 Physical Exam GENERAL: This is a well-nourished, well-developed patient, in no apparent distress. SKIN: No rashes, ecchymoses or lesions. Cool and dry. HEAD: Atraumatic. Normocephalic. No temporal or scalp tenderness. EYES: Pupils equal round and reactive. Extraocular motions intact. No scleral icterus. No injection or drainage. ENT: Nose without bleeding, purulent drainage or septal hematoma. Throat without erythema, tonsillar hypertrophy or exudate. Uvula midline. Airway patent. NECK: Trachea midline. No JVD or lymphadenopathy. Supple, nontender, no meningeal signs. CARDIOVASCULAR: Regular rate and rhythm without murmurs, gallops, or rubs. RESPIRATORY: Clear to auscultation. Breath sounds equal bilaterally. No wheezes , rales, or rhonchi. GASTROINTESTINAL: Abdomen soft, non-tender, nondistended. No hepato-splenomegaly , or palpable masses. No guarding. MUSCULOSKELETAL: Extremities without clubbing, cyanosis, or edema. No joint tenderness, effusion, or edema noted. No calf tenderness. Negative Homans sign bilaterally. NEUROLOGICAL: Awake and alert. Cranial nerves II through XII intact. Motor and sensory grossly within normal limits. Five out of 5 muscle strength in all muscle groups. Normal speech. Laboratory Laboratory Tests Test 02/07/17 02/07/17 11:03 12:15 White Blood Count 5.9 Red Blood Count 2.94 Hemoglobin 9.4 Hematocrit 27.7 Mean Corpuscular Volume 94.0 Mean Corpuscular Hemoglobin 31.9 Mean Corpuscular Hemoglobin 33.9 Concent Red Cell Distribution Width 14.3 Platelet Count 177 Mean Platelet Volume 8.8 Neutrophils (%) (Auto) 68.5 Lymphocytes (%) (Auto) 19.6 Monocytes (%) (Auto) 8.5 Eosinophils (%) (Auto) 2.7 Basophils (%) (Auto) 0.7 Neutrophils # (Auto) 4.0 Lymphocytes # (Auto) 1.2 Monocytes # (Auto) 0.5 Eosinophils # (Auto) 0.2 Basophils # (Auto) 0.0 CBC Comment DIFF FINAL Differential Comment Prothrombin Time 10.9 Prothromb Time International 1.0 Ratio Activated Partial 22.9 Thromboplast Time Sodium Level 139 Potassium Level 4.8 Chloride Level 104 Carbon Dioxide Level 28.3 Anion Gap 7 Blood Urea Nitrogen 43 Creatinine 2.32 Estimat Glomerular Filtration 27 Rate Random Glucose 134 Calcium Level 9.2 Total Bilirubin 0.3 Aspartate Amino Transf 44 (AST/SGOT) Alanine Aminotransferase 32 (ALT/SGPT) Alkaline Phosphatase 30 Total Creatine Kinase 1828 Creatine Kinase MB 11.1 Creatine Kinase MB % 0.6 Troponin I 0.09 Total Protein 6.1 Albumin 3.6 Thyroid Stimulating Hormone 3.920 3rd Gen Urine Color YELLOW Urine Turbidity CLEAR Urine pH 6.5 Urine Specific [place] 1.012 Urine Protein 100 Urine Glucose (UA) TRACE Urine Ketones NEG Urine Occult Blood SMALL Urine Nitrite NEG Urine Bilirubin NEG Urine Urobilinogen LESS THAN 2.0 Urine Leukocyte Esterase NEG Urine RBC 1 Urine WBC 2 Microscopic Urinalysis Comment CATH-CULT NOT IND Result Diagram: 02/07/17 1103 02/07/17 1103 Imaging Last Impressions Head CT 02/07/17 1048 Signed Impressions: Service Date/Time: Tuesday, February 07, 2017 11:30 - CONCLUSION: Stable ventriculoperitoneal shunt No evidence of hydrocephalus, acute infarct, hemorrhage, mass effect or edema. Cerebral white matter disease characteristic of mild to moderate chronic microvascular ischemic changes. Tobi Keenan MD Chest X-Ray 02/07/17 1048 Signed Impressions: Service Date/Time: Tuesday, February 07, 2017 10:56 - CONCLUSION: Hyperinflation. Clear lungs. Shadi Jimenez MD Shunt Study (Imaging) 02/07/17 0000 Signed Impressions: Service Date/Time: Tuesday, February 07, 2017 13:38 - CONCLUSION: Intact CRANE LADLE PERSON shunt tubing which terminates in the right midabdomen. Henrry Garnett MD Shunt Study 02/07/17 0000 Signed Impressions: Service Date/Time: Tuesday, February 07, 2017 15:41 - CONCLUSION: Patent shunt. Tobi Keenan MD Assessment and Plan Problem List: (1) Generalized weakness Status: Acute Plan: - Patient with worsening weakness and recurrent falls at home - CK elevated at 1828 - Patient with history of normal pressure hydrocephalus. Patient had CRANE LADLE PERSON shunt placed by Dr. Robbins 2015 - PT - Will need SNF upon discharge - comgmt with Neurosurgery. Case d/w Dr. Colmenares - Shuntogram (02/07/17) --> no evidence of shunt malfunction (2) NPH (normal pressure hydrocephalus) Status: Acute Plan: - see above (3) Rhabdomyolysis Status: Acute Plan: - continue IVFs - observe renal function - observe CK (4) DM2 (diabetes mellitus, type 2) Status: Acute Plan: - hold metformin - SSI (5) BPH (benign prostatic hyperplasia) Status: Chronic Plan: - continue outpt medications Physician Certification 2 Midnight Certification Type: Admission for Inpatient Services Order for Inpatient Services The services are ordered in accordance with Medicare regulations or non- Medicare payer requirements, as applicable. In the case of services not specified as inpatient-only, they are appropriately provided as inpatient services in accordance with the 2-midnight benchmark. Estimated LOS (days): 3 3 days is the estimated time the patient will need to remain in the hospital, assuming treatment plan goals are met and no additional complications. Post-Hospital Plan: Not yet determined Problem Qualifiers (1) Rhabdomyolysis: Qualified Code: M62.82 - Non-traumatic rhabdomyolysis (2) DM2 (diabetes mellitus, type 2): (3) BPH (benign prostatic hyperplasia): Cortes Stanton DO Feb 07, 2017 18:32
[2017-02-07 20:00] VITALS: BP 142/69; PULSE 83; RESP 17; TEMP 98.6; O2SAT 93
[2017-02-07] MEDS ORDERED: NON-FORMULARY DRUG (Rosuvastatin 10 MG) PO SCH (21:00)
[2017-02-07] MEDS: TAMSULOSIN HCL 0.4 MG CAP PO SCH (21:21)
[2017-02-07] MEDS: SODIUM CHLORIDE 0.9% FLUSH 10 ML FLUSH IV FLUSH SCH (21:22)
[2017-02-07 23:45] VITALS: BP 135/70; PULSE 76; RESP 18; TEMP 99.4; O2SAT 94
[2017-02-08 04:30] VITALS: BP 165/88; PULSE 81; RESP 18; TEMP 98.6; O2SAT 94
[2017-02-08] MEDS: INSULIN ASPART SUPPLEMENTAL SCALE SQ SCH ×4 (07:00→21:50)
[2017-02-08 07:56] LABS: AUTOMATED NEUTROPHIL # 3.6 TH/MM3 (1.8-7.7); BASOPHIL # 0.1 TH/MM3 (0-0.2); EOSINOPHIL # 0.2 TH/MM3 (0-0.4); EOSINOPHIL % 4.1 % (0.0-4.0); HEMATOCRIT 25.4 % (39.0-51.0); HEMO FLAGS DIFF FINAL; LYMPH % 25.9 % (9.0-44.0); LYMPHOCYTE # 1.5 TH/MM3 (1.0-4.8); MEAN CELL VOLUME 94.1 FL (80.0-100.0); MEAN CORPUSCULAR HEMOGLOBIN 31.8 PG (27.0-34.0); MEAN CORPUSCULAR HGB CONC 33.8 % (32.0-36.0); MONO % 8.5 % (0.0-8.0); NEUT % 60.5 % (16.0-70.0); PLATELET COUNT 166 TH/MM3 (150-450); RED CELL DISTRIBUTION WIDTH 13.9 % (11.6-17.2); WHITE BLOOD COUNT 5.9 TH/MM3 (4.0-11.0)
[2017-02-08 08:00] VITALS: BP 173/90; PULSE 82; RESP 16; TEMP 98.8; O2SAT 96
[2017-02-08] MEDS: 1/2 NS + KCL 20 MEQ INJ 1,000 ML IV SCH (08:01)
[2017-02-08 08:23] LABS: BICARBONATE 28.8 MEQ/L (21.0-32.0); POTASSIUM 4.6 MEQ/L (3.5-5.1)
[2017-02-08 09:11] LABS: CKMB 3.6 NG/ML (0.5-3.6)
[2017-02-08] MEDS: ESCITALOPRAM OXALATE 20 MG TAB PO SCH (09:17)
[2017-02-08] MEDS: FINASTERIDE 5 MG TAB PO SCH (09:17)
[2017-02-08] MEDS: GABAPENTIN 100 MG CAP PO SCH ×3 (09:18→17:11)
[2017-02-08] MEDS: SODIUM CHLORIDE 0.9% FLUSH 10 ML FLUSH IV FLUSH SCH ×2 (09:20→21:42)
--- NOTE | 2017-02-08 09:49 | HHI.NSPN ---
Note Status Status: Progress Note Interval History Diagnosis NPH Interval History Disease 81 -year-old male with history of dementia, NPH - s/p VPS and BPH. He has history of ventriculoperitoneal shunt placement by with good results. He presented to [place] emergency room with c/o worsening LE weakness. He reports recurrent falls at home. Denies headaches masses or vomiting. He denies fever or chills he does no seizure activity noted. There was not tongue biting. There was no incontinence of stool. He reports urinary incontinence and poor memory. His family is concerned of possible TERMINAL SYSTEM OPERATOR shunt malfunction. Admitted to [facility] for further evaluation and treatment. Neurosurgical consultation was requested 02/08. He underwent shunt serious and a shuntogram yesterday Labs, Micro, & Vital Signs Results Date Time Temp Pulse Resp B/P Pulse Ox O2 Delivery O2 Flow Rate FiO2 02/08/17 04:30 98.6 81 18 165/88 94 02/07/17 23:45 99.4 76 18 135/70 94 02/07/17 20:00 98.6 83 17 142/69 93 02/07/17 18:46 Room Air 02/07/17 16:00 98.9 79 18 158/83 94 02/07/17 10:23 84 18 92 Room Air 02/07/17 10:17 98.3 83 18 174/79 93 02/08/17 07:00 Intake Total 1170 ml Output Total 755 ml Balance 415 ml Constitutional Vital Signs Date Time Temp Pulse Resp B/P Pulse Ox O2 Delivery O2 Flow Rate FiO2 02/08/17 04:30 98.6 81 18 165/88 94 02/07/17 23:45 99.4 76 18 135/70 94 02/07/17 20:00 98.6 83 17 142/69 93 02/07/17 18:46 Room Air 02/07/17 16:00 98.9 79 18 158/83 94 02/07/17 10:23 84 18 92 Room Air 02/07/17 10:17 98.3 83 18 174/79 93 02/08/17 07:00 Intake Total 1170 ml Output Total 755 ml Balance 415 ml Review of Systems/Exam Exam Mr Bui is alert, awake and oriented to time, place and person. Speech is fluent. Cranial nerve examination demonstrates the pupils to be equal, round, and reactive to light. Extra-ocular movements are intact. Facial motor and sensory function are normal and symmetrical. Gross hearing is intact, bilaterally. The uvula is midline and elevates symmetrically with the soft palate. Sternocleidomastoid and trapezius muscles have normal and symmetrical strength. Other cranial nerves are intact. Sunt palpable. Depresses easily and refills promptly Neck is soft and supple. Cervical spine has a good range of motion in anterior flexion, extension, lateral bending, and rotation without pain. There is no tenderness to palpation to the spinous processes or paraspinal muscles. Muscle testing reveals normal bulk and tone overall without rigidity, spasticity , fasciculations, or atrophy. Muscle strength is 5/5 in all muscle groups of both upper extremities including deltoid, biceps, triceps, brachioradialis, wrist extension and machinist brake. In the lower extremities, strength is 5/5 in both iliopsoas, quadriceps, hamstrings, plantar flexion, dorsiflexion, and extensor hallicus longus. Sensory examination is intact to light touch and sharp/dull discrimination in both the upper and lower extremities, symmetrically. Deep tendon reflexes are 1+ and symmetrical in the biceps, triceps, and brachioradialis, bilaterally, in the upper extremities. In the lower extremities , the patellar and Achilles are 1+, bilaterally. There is a bilateral plantar flexion response. Hoffmanns sign is negative. There is no clonus Cerebellar examination is intact to [id number] test, rapid rhythmic alternating motion. Medications Current Medications Current Medications Sodium Chloride 2 ml 2 ml UNSCH PRN IVF FLUSH AFTER USING IV ACCESS; Start at 11:00; Stop 02/07/17 at 12:43; Status DC Sodium Chloride 1,000 ml @ 125 mls/hr Q8H IV ; Start 02/07/17 at 10:48; Stop at 18:47; Status DC Sodium Chloride (NS 1000 ml Inj) 1,000 ml @ 999 mls/hr BOLUS ONCE IV Last administered on 02/07/17t 12:23; Start 02/07/17 at 12:00; Stop 02/07/17 at 13:00 ; Status DC Sodium Chloride (NS Flush) 2 ml UNSCH PRN IV FLUSH FLUSH AFTER USING IV ACCESS ; Start 02/07/17 at 12:45 Sodium Chloride (NS Flush) 2 ml BID IV FLUSH Last administered on 02/08/17 09: 20; Start 02/07/17 at 21:00 Acetaminophen (Tylenol) 650 mg Q4H PRN PO TEMP > 100.4; Start 02/07/17 at 12:45 Ondansetron HCl (Zofran Inj) 4 mg Q6H PRN IVP NAUSEA OR VOMITING; Start at 12:45 Magnesium Hydroxide (Milk Of Magnesia Liq) 30 ml Q12H PRN PO CONSTIPATION Last administered on 02/08/17 09:17; Start 02/07/17 at 12:45 Temazepam (Restoril) 15 mg HS PRN PO INSOMNIA; Start 02/07/17 at 12:45 Naloxone HCl 0.4 mg 0.4 mg UNSCH PRN IV SEE LABEL COMMENTS; Start 02/07/17 at 12:45 Potassium Chloride/Sodium Chloride (1/2 NS + KCl 20 Meq Inj) 1,000 ml @ 84 mls/ hr [id number] IV Last administered on 02/08/17 08:01; Start 02/07/17 at 13:00 Escitalopram Oxalate (Lexapro) 20 mg DAILY PO Last administered on 02/08/17 09 :17; Start 02/08/17 at 09:00 Finasteride (Proscar) 5 mg DAILY PO Last administered on 02/08/17 09:17; Start 02/08/17 at 09:00 Gabapentin (Neurontin) 800 mg TID PO ; Start 02/07/17 at 13:00; Stop 02/07/17 at 13:00; Status DC Tamsulosin HCl (Flomax) 0.4 mg HS PO Last administered on 02/07/17 21:21; Start 02/07/17 at 21:00 Non-Formulary Medication 10 mg HS PO ; Start 02/07/17 at 21:00; Stop 02/07/17 at 21:00; Status DC Gabapentin (Neurontin) 200 mg TID PO Last administered on 02/08/17 09:18; Start 02/07/17 at 13:00 Insulin Aspart (NovoLOG SUPPLEMENTAL SCALE) 1 ACHS SLIDING SCALE SQ ; Start at 16:00 Iohexol (Omnipaque 300 Inj) 9 ml STK-MED ONCE .XX Last administered on t 14:56; Start 02/07/17 at 14:56; Stop 02/07/17 at 15:15; Status DC Medical Decision Making MDM Remarks Last Impressions Head CT 02/07/17 1048 Signed Impressions: Service Date/Time: Tuesday, February 07, 2017 11:30 - CONCLUSION: Stable ventriculoperitoneal shunt No evidence of hydrocephalus, acute infarct, hemorrhage, mass effect or edema. Cerebral white matter disease characteristic of mild to moderate chronic microvascular ischemic changes. Tobi Keenan MD Chest X-Ray 02/07/17 1048 Signed Impressions: Service Date/Time: Tuesday, February 07, 2017 10:56 - CONCLUSION: Hyperinflation. Clear lungs. Shadi Jimenez MD Shunt Study (Imaging) 02/07/17 0000 Signed Impressions: Service Date/Time: Tuesday, February 07, 2017 13:38 - CONCLUSION: Intact TERMINAL SYSTEM OPERATOR shunt tubing which terminates in the right midabdomen. Henrry Garnett MD Shunt Study 02/07/17 0000 Signed Impressions: Service Date/Time: Tuesday, February 07, 2017 15:41 - CONCLUSION: Patent shunt. Tobi Keenan MD Attending Statement Continue neuro checks in a serial fashion. Review shunt series which were normal and a shuntogram which showed that his TERMINAL SYSTEM OPERATOR shunt is working. We will try to reprogram the shunt to lower settings, to allow for more cerebrospinal fluid drainage. Using a [employer] computer, the shunt was reprogrammed as follows: Ultrasound gel was placed over the valve and the transfuser was calibrated at a pressure of 100mm/H20. The shunt was then reprogrammed and an audible sound confirmed the new settings. The patient tolerated the procedure well without complication. If no improvement, consider MRI of the spine to rule out stenosis Respiratory. Continue pulmonary toilette, nasotracheal suction, and breathing treatments with nebulizers. Continue daily PT Nutrition. Continue Oral diet Renal. Continue to monitor closely urine output, BUN and creatinine Endocrine. Continue to Monitor serial Acu checks and SSI for tight control ID continue to monitor for signs of infection Continue Protonix for stress ulcer prophylaxis Continue Miguelito hose and SCD's for DVT prophylaxis Robert Colmenares MD Feb 08, 2017 09:49
--- NOTE | 2017-02-08 15:40 | HHI.PR ---
Subjective Remarks No new complaints. Objective Vitals Vital Signs Date Time Temp Pulse Resp B/P Pulse Ox O2 Delivery O2 Flow Rate FiO2 02/08/17 08:00 98.8 82 16 173/90 96 02/08/17 04:30 98.6 81 18 165/88 94 02/07/17 23:45 99.4 76 18 135/70 94 02/07/17 20:00 98.6 83 17 142/69 93 02/07/17 18:46 Room Air 02/07/17 16:00 98.9 79 18 158/83 94 02/07/17 02/07/17 02/08/17 15:00 23:00 07:00 Intake Total 390 ml 780 ml Output Total 155 ml 600 ml Balance 235 ml 180 ml Intake Oral 240 ml 120 ml IV Total 150 ml 660 ml Output Urine Total 155 ml 600 ml # Voids 1 3 # Bowel Movements 0 0 Result Diagram: 02/08/17 0700 02/08/17 0700 Imaging Last Impressions Head CT 02/07/17 1048 Signed Impressions: Service Date/Time: Tuesday, February 07, 2017 11:30 - CONCLUSION: Stable ventriculoperitoneal shunt No evidence of hydrocephalus, acute infarct, hemorrhage, mass effect or edema. Cerebral white matter disease characteristic of mild to moderate chronic microvascular ischemic changes. Tobi Keenan MD Chest X-Ray 02/07/17 1048 Signed Impressions: Service Date/Time: Tuesday, February 07, 2017 10:56 - CONCLUSION: Hyperinflation. Clear lungs. Shadi Jimenez MD Shunt Study (Imaging) 02/07/17 0000 Signed Impressions: Service Date/Time: Tuesday, February 07, 2017 13:38 - CONCLUSION: Intact ORACLE SOFTWARE ENGINEER shunt tubing which terminates in the right midabdomen. Henrry Garnett MD Shunt Study 02/07/17 0000 Signed Impressions: Service Date/Time: Tuesday, February 07, 2017 15:41 - CONCLUSION: Patent shunt. Tobi Keenan MD Objective Remarks GENERAL: This is a well-nourished, well-developed patient, in no apparent distress. CARDIOVASCULAR: Regular rate and rhythm without murmurs, gallops, or rubs. RESPIRATORY: Clear to auscultation. Breath sounds equal bilaterally. No wheezes , rales, or rhonchi. GASTROINTESTINAL: Abdomen soft, non-tender, nondistended. Normal active bowel sounds MUSCULOSKELETAL: Extremities without clubbing, cyanosis, or edema. NEURO: Alert & Oriented x3, but confused at times. MELCHOR. A/P Problem List: (1) Rhabdomyolysis Status: Acute Plan: - improving - continue IVFs - renal function improving - Creatinine 2.32 (02/07/17), 2.08 (02/08/17) - CK 1828 (02/07/17), 1681 (02/08/17) - anticipate d/c to SNF in 2-3 days (2) Generalized weakness Status: Acute Plan: - Patient with worsening weakness and recurrent falls at home - CK elevated at 1828 - Patient with history of normal pressure hydrocephalus. Patient had ORACLE SOFTWARE ENGINEER shunt placed by Dr. Robbins 2014 - PT - Will need SNF upon discharge - comgmt with Neurosurgery. Case d/w Dr. Colmenares - Shuntogram (02/07/17) --> no evidence of shunt malfunction (3) NPH (normal pressure hydrocephalus) Status: Acute Plan: - see above (4) DM2 (diabetes mellitus, type 2) Status: Acute Plan: - hold metformin - SSI (5) BPH (benign prostatic hyperplasia) Status: Chronic Plan: - continue outpt medications (6) HTN (hypertension) Status: Acute Plan: - procardia XL 30mg daily - observe (7) Anemia Status: Acute Plan: - normocytic - likely dilutional - repeat CBC in AM - obtain iron indices Problem Qualifiers (1) Rhabdomyolysis: Qualified Code: M62.82 - Non-traumatic rhabdomyolysis (2) DM2 (diabetes mellitus, type 2): (3) BPH (benign prostatic hyperplasia): (4) Anemia: Qualified Code: D64.9 - Anemia, unspecified type Cortes Stanton DO Feb 08, 2017 15:40
--- NOTE | 2017-02-08 15:41 | EKG ---
Date Performed: 02/07/2017 Time Performed: 10:19:14 PTAGE: 81 years EKG: Sinus rhythm NONSPECIFIC ST & T-WAVE ABNORMALITY ABNORMAL ECG Compared to PREVIOUS TRACING , T-wave changes are new. PREVIOUS TRACIN02/21/2015 15.49 DOCTOR: Donavan Shelton Interpretating Date/Time 02/08/2017 15:39:59
[2017-02-08] MEDS ORDERED: ENALAPRILAT 1.25 MG/ML VIAL IV PRN (15:45)
[2017-02-08 16:00] VITALS: BP 180/89; PULSE 85; RESP 16; TEMP 96; O2SAT 98
[2017-02-08 16:31] LABS: RETIC % 0.8 % (0.4-3.0); REVIEW FLAG FINAL
[2017-02-08 17:07] VITALS: BP 161/96; PULSE 84; RESP 16; TEMP 98.6; O2SAT 95
[2017-02-08] MEDS: NIFEdipine 30 MG SUSTAINED RELEASE TAB PO SCH (17:10)
[2017-02-08] MEDS: cloNIDine HCL 0.2 MG TAB PO PRN (17:10)
[2017-02-08 17:12] LABS: FERRITIN 14 NG/ML (26-388); LDH SERUM 193 U/L (87-241); TRANSFERRIN IRON PROFILE 229 MG/DL (200-360)
[2017-02-08 20:45] VITALS: BP 113/69; PULSE 72; RESP 17; TEMP 97.9; O2SAT 96
[2017-02-08] MEDS: TAMSULOSIN HCL 0.4 MG CAP PO SCH (21:42)
[2017-02-09 00:15] VITALS: BP 118/66; PULSE 77; RESP 17; TEMP 97.3; O2SAT 94
[2017-02-09] MEDS: 1/2 NS + KCL 20 MEQ INJ 1,000 ML IV SCH ×3 (00:45→17:00)
[2017-02-09] MEDS: INSULIN ASPART SUPPLEMENTAL SCALE SQ SCH ×4 (07:00→21:00)
[2017-02-09 07:13] LABS: HEMATOCRIT 23.7 % (39.0-51.0); MEAN CORPUSCULAR HEMOGLOBIN 31.9 PG (27.0-34.0); PLATELET COUNT 150 TH/MM3 (150-450); RED BLOOD COUNT 2.52 MIL/MM3 (4.50-5.90); RED CELL DISTRIBUTION WIDTH 14.2 % (11.6-17.2); WHITE BLOOD COUNT 5.4 TH/MM3 (4.0-11.0)
[2017-02-09 07:16] LABS: HEMO FLAGS AUTO DIFF
[2017-02-09 07:44] LABS: BICARBONATE 28.6 MEQ/L (21.0-32.0); POTASSIUM 4.6 MEQ/L (3.5-5.1)
[2017-02-09 07:58] LABS: CKMB 1.8 NG/ML (0.5-3.6)
[2017-02-09 08:00] VITALS: BP 134/72; PULSE 111; RESP 16; TEMP 97.1; O2SAT 95
[2017-02-09] MEDS: GABAPENTIN 100 MG CAP PO SCH ×3 (08:11→16:57)
[2017-02-09] MEDS: NIFEdipine 30 MG SUSTAINED RELEASE TAB PO SCH (08:11)
[2017-02-09] MEDS: FINASTERIDE 5 MG TAB PO SCH (08:11)
[2017-02-09] MEDS: ESCITALOPRAM OXALATE 20 MG TAB PO SCH (08:11)
[2017-02-09] MEDS: SODIUM CHLORIDE 0.9% FLUSH 10 ML FLUSH IV FLUSH SCH ×2 (08:16→21:00)
[2017-02-09 08:32] LABS: EOSINOPHILS 3 % (0-4); NEUTROPHIL # MANUAL DIFF 3.3 TH/MM3 (1.8-7.7); POLYS (SEG NEUTROPHILS) 62 % (16-70); WBC DIFF SAMPLE 100
[2017-02-09 08:33] LABS: PLATELET ESTIMATE SMEAR NORMAL (NORMAL); PLATELET MORPHOLOGY NORMAL (NORMAL); SCAN/DIFF FINAL DIFF MANUAL
--- NOTE | 2017-02-09 09:35 | HHI.PR ---
Subjective Remarks No new complaints. Objective Vitals Vital Signs Date Time Temp Pulse Resp B/P Pulse Ox O2 Delivery O2 Flow Rate FiO2 02/09/17 00:15 97.3 77 17 118/66 94 02/08/17 20:45 97.9 72 17 113/69 96 02/08/17 17:07 98.6 84 16 161/96 95 02/08/17 16:00 96.0 85 16 180/89 98 02/08/17 02/08/17 02/09/17 15:00 23:00 07:00 Intake Total 751 ml 120 ml 120 ml Balance 751 ml 120 ml 120 ml Intake Oral 480 ml 120 ml 120 ml IV Total 271 ml # Voids 4 1 4 # Bowel Movements 0 0 1 Result Diagram: 02/09/17 0548 02/09/17 0548 Imaging Last Impressions Head CT 02/07/17 1048 Signed Impressions: Service Date/Time: Tuesday, February 07, 2017 11:30 - CONCLUSION: Stable ventriculoperitoneal shunt No evidence of hydrocephalus, acute infarct, hemorrhage, mass effect or edema. Cerebral white matter disease characteristic of mild to moderate chronic microvascular ischemic changes. Tobi Keenan MD Chest X-Ray 02/07/17 1048 Signed Impressions: Service Date/Time: Tuesday, February 07, 2017 10:56 - CONCLUSION: Hyperinflation. Clear lungs. Shadi Jimenez MD Shunt Study (Imaging) 02/07/17 0000 Signed Impressions: Service Date/Time: Tuesday, February 07, 2017 13:38 - CONCLUSION: Intact IMAGE ARCHIVIST shunt tubing which terminates in the right midabdomen. Henrry Garnett MD Shunt Study 02/07/17 0000 Signed Impressions: Service Date/Time: Tuesday, February 07, 2017 15:41 - CONCLUSION: Patent shunt. Tobi Keenan MD Objective Remarks GENERAL: This is a well-nourished, well-developed patient, in no apparent distress. CARDIOVASCULAR: Regular rate and rhythm without murmurs, gallops, or rubs. RESPIRATORY: Clear to auscultation. Breath sounds equal bilaterally. No wheezes , rales, or rhonchi. GASTROINTESTINAL: Abdomen soft, non-tender, nondistended. Normal active bowel sounds MUSCULOSKELETAL: Extremities without clubbing, cyanosis, or edema. NEURO: Alert & Oriented x3, but confused at times. MELCHOR. A/P Problem List: (1) Rhabdomyolysis Status: Acute Plan: - improving - continue IVFs - renal function improving - Creatinine 2.32 (02/07/17), 2.08 (02/08/17), 2.09 (02/09/17) - I have reviewed the pt's outpt labs. Pt's Cr has ranged ranged 1.99 - 2.05 since late March 2016 - Pt's renal functions appear to be at baseline. Outpt f/u with Nephrology would be reasonable. - CK 1828 (02/07/17), 1681 (02/08/17), 1,352 (02/09/17) - will continue IVFs overnight - repeat BMP, CK in AM - anticipate d/c to SNF in 1-2 days - Case d/w Pt & at bedside. All questions answered. (2) Generalized weakness Status: Acute Plan: - Patient with worsening weakness and recurrent falls at home - CK elevated at 1828 on admission - Patient with history of normal pressure hydrocephalus. Patient had IMAGE ARCHIVIST shunt placed by Dr. Robbins 2014 - PT - Will need SNF upon discharge - comgmt with Neurosurgery. Case d/w Dr. Colmenares - Shuntogram (02/07/17) --> no evidence of shunt malfunction (3) NPH (normal pressure hydrocephalus) Status: Acute Plan: - see above (4) DM2 (diabetes mellitus, type 2) Status: Acute Plan: - hold metformin, resume upon discharge - SSI (5) BPH (benign prostatic hyperplasia) Status: Chronic Plan: - continue outpt medications (6) HTN (hypertension) Status: Acute Plan: - improved since starting procardia XL - procardia XL 30mg daily - observe (7) Anemia Status: Acute Plan: - normocytic - likely dilutional - Hg 8.0 (02/09/17) - repeat CBC in AM - iron indices --> serum iron 70, ferritin 14 - No record of recent colon[facility] - outpt f/u with GI for screening colonoscopy would be reasonable, if pt agrees. Problem Qualifiers (1) Rhabdomyolysis: Qualified Code: M62.82 - Non-traumatic rhabdomyolysis (2) DM2 (diabetes mellitus, type 2): (3) BPH (benign prostatic hyperplasia): (4) Anemia: Qualified Code: D64.9 - Anemia, unspecified type Cortes Stanton DO Feb 09, 2017 09:35
--- NOTE | 2017-02-09 10:53 | HHI.NSPN ---
Note Status Status: Progress Note Interval History Diagnosis NPH Interval History This is a 81 -year-old male with history of dementia, NPH - s/p VPS and BPH. He has history of ventriculoperitoneal shunt placement by with good results. He presented to [facility] emergency room with c/o worsening LE weakness. He reports recurrent falls at home. Denies headaches masses or vomiting. He denies fever or chills he does no seizure activity noted. There was not tongue biting. There was no incontinence of stool. He reports urinary incontinence and poor memory. His family is concerned of possible NITRATOR OPERATOR shunt malfunction. Admitted to [facility] for further evaluation and treatment. Neurosurgical consultation was requested 02/09. His shunt has been reprogrammed to 19 mmHg. It is hard to assess any clinical improvement Labs, Micro, & Vital Signs Results Date Time Temp Pulse Resp B/P Pulse Ox O2 Delivery O2 Flow Rate FiO2 02/09/17 08:00 97.1 111 16 134/72 95 02/09/17 00:15 97.3 77 17 118/66 94 02/08/17 20:45 97.9 72 17 113/69 96 02/08/17 17:07 98.6 84 16 161/96 95 02/08/17 16:00 96.0 85 16 180/89 98 02/09/17 07:00 Intake Total 991 ml Balance 991 ml Constitutional Vital Signs Date Time Temp Pulse Resp B/P Pulse Ox O2 Delivery O2 Flow Rate FiO2 02/09/17 08:00 97.1 111 16 134/72 95 02/09/17 00:15 97.3 77 17 118/66 94 02/08/17 20:45 97.9 72 17 113/69 96 02/08/17 17:07 98.6 84 16 161/96 95 02/08/17 16:00 96.0 85 16 180/89 98 02/09/17 07:00 Intake Total 991 ml Balance 991 ml Review of Systems/Exam Exam Mr Bui is alert, awake and oriented to time, place and person. Speech is fluent. Cranial nerve examination demonstrates the pupils to be equal, round, and reactive to light. Extra-ocular movements are intact. Facial motor and sensory function are normal and symmetrical. Gross hearing is intact, bilaterally. The uvula is midline and elevates symmetrically with the soft palate. Sternocleidomastoid and trapezius muscles have normal and symmetrical strength. Other cranial nerves are intact. Sunt palpable. Depresses easily and refills promptly Neck is soft and supple. Cervical spine has a good range of motion in anterior flexion, extension, lateral bending, and rotation without pain. There is no tenderness to palpation to the spinous processes or paraspinal muscles. Muscle testing reveals normal bulk and tone overall without rigidity, spasticity , fasciculations, or atrophy. 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 In the lower extremities, strength is 5/5 in both iliopsoas, quadriceps, hamstrings, plantar flexion, dorsiflexion, and extensor hallicus longus. Sensory examination is intact to light touch and sharp/dull discrimination in both the upper and lower extremities, symmetrically. Deep tendon reflexes are 1+ and symmetrical in the biceps, triceps, and brachioradialis, bilaterally, in the upper extremities. In the lower extremities , the patellar and Achilles are 1+, bilaterally. There is a bilateral plantar flexion response. Hoffmanns sign is negative. There is no clonus Cerebellar examination is intact to [id number] test, rapid rhythmic alternating motion. Medications Current Medications Current Medications Sodium Chloride 2 ml 2 ml UNSCH PRN IVF FLUSH AFTER USING IV ACCESS; Start at 11:00; Stop 02/07/17 at 12:43; Status DC Sodium Chloride 1,000 ml @ 125 mls/hr Q8H IV ; Start 02/07/17 at 10:48; Stop at 18:47; Status DC Sodium Chloride (NS 1000 ml Inj) 1,000 ml @ 999 mls/hr BOLUS ONCE IV Last administered on 02/07/17t 12:23; Start 02/07/17 at 12:00; Stop 02/07/17 at 13:00 ; Status DC Sodium Chloride (NS Flush) 2 ml UNSCH PRN IV FLUSH FLUSH AFTER USING IV ACCESS ; Start 02/07/17 at 12:45 Sodium Chloride (NS Flush) 2 ml BID IV FLUSH Last administered on 02/08/17 09: 20; Start 02/07/17 at 21:00 Acetaminophen (Tylenol) 650 mg Q4H PRN PO TEMP > 100.4; Start 02/07/17 at 12:45 Ondansetron HCl (Zofran Inj) 4 mg Q6H PRN IVP NAUSEA OR VOMITING; Start at 12:45 Magnesium Hydroxide (Milk Of Magnesia Liq) 30 ml Q12H PRN PO CONSTIPATION Last administered on 02/08/17 09:17; Start 02/07/17 at 12:45 Temazepam (Restoril) 15 mg HS PRN PO INSOMNIA; Start 02/07/17 at 12:45 Naloxone HCl 0.4 mg 0.4 mg UNSCH PRN IV SEE LABEL COMMENTS; Start 02/07/17 at 12:45 Potassium Chloride/Sodium Chloride (1/2 NS + KCl 20 Meq Inj) 1,000 ml @ 84 mls/ hr [id number] IV Last administered on 02/09/17 17:00; Start 02/07/17 at 13:00 Escitalopram Oxalate (Lexapro) 20 mg DAILY PO Last administered on 02/10/17 09 :36; Start 02/08/17 at 09:00 Finasteride (Proscar) 5 mg DAILY PO Last administered on 02/10/17 09:36; Start 02/08/17 at 09:00 Gabapentin (Neurontin) 800 mg TID PO ; Start 02/07/17 at 13:00; Stop 02/07/17 at 13:00; Status DC Tamsulosin HCl (Flomax) 0.4 mg HS PO Last administered on 02/09/17 21:41; Start 02/07/17 at 21:00 Non-Formulary Medication 10 mg HS PO ; Start 02/07/17 at 21:00; Stop 02/07/17 at 21:00; Status DC Gabapentin (Neurontin) 200 mg TID PO Last administered on 02/10/17 09:36; Start 02/07/17 at 13:00 Insulin Aspart (NovoLOG SUPPLEMENTAL SCALE) 1 ACHS SLIDING SCALE SQ Last administered on 02/10/17 11:00; Start 02/07/17 at 16:00 Iohexol (Omnipaque 300 Inj) 9 ml STK-MED ONCE .XX Last administered on 14:56; Start 02/07/17 at 14:56; Stop 02/07/17 at 15:15; Status DC Nifedipine (Procardia Xl) 30 mg DAILY PO Last administered on 02/10/17 09:36; Start 02/08/17 at 16:00 Clonidine (Catapres) 0.2 mg Q6H PRN PO SBP above 160 Last administered on 17:10; Start 02/08/17 at 15:45 Enalaprilat (Vasotec Inj) 1.25 mg Q6H PRN IV sbp above 160; Start 02/08/17 at 15:45 Medical Decision Making MDM Remarks Last Impressions Head CT 02/07/17 1048 Signed Impressions: Service Date/Time: Tuesday, February 07, 2017 11:30 - CONCLUSION: Stable ventriculoperitoneal shunt No evidence of hydrocephalus, acute infarct, hemorrhage, mass effect or edema. Cerebral white matter disease characteristic of mild to moderate chronic microvascular ischemic changes. Tobi Keenan MD Chest X-Ray 02/07/17 1048 Signed Impressions: Service Date/Time: Tuesday, February 07, 2017 10:56 - CONCLUSION: Hyperinflation. Clear lungs. Shadi Jimenez MD Shunt Study (Imaging) 02/07/17 0000 Signed Impressions: Service Date/Time: Tuesday, February 07, 2017 13:38 - CONCLUSION: Intact NITRATOR OPERATOR shunt tubing which terminates in the right midabdomen. Henrry Garnett MD Shunt Study 02/07/17 0000 Signed Impressions: Service Date/Time: Tuesday, February 07, 2017 15:41 - CONCLUSION: Patent shunt. Tobi Keenan MD Plan Plan Remarks 81 y/o male with NPH, NITRATOR OPERATOR shunt shuntogram with patent shunt shunt setting decreased to 90 mmHg 02/08/17 Attending Statement Continue neuro checks in a serial fashion. His shunt has been reprogrammed to a lower setting. We will assess if there is any improvement Respiratory. Continue pulmonary toilette, nasotracheal suction, and breathing treatments with nebulizers. Daily PT and OT Nutrition. Continue Oral diet Renal. Continue to monitor closely urine output, BUN and creatinine Endocrine. Continue to Monitor serial Acu checks and SSI for tight control Continue to ID monitor for signs of infection Continue Protonix for stress ulcer prophylaxis Continue Miguelito matt and SCD's for DVT prophylaxis Robert Colmenares MD Feb 09, 2017 10:53
[2017-02-09 10:56] VITALS: BP 133/74; PULSE 83; RESP 16; TEMP 97.9; O2SAT 96
[2017-02-09 16:54] VITALS: BP 145/77; RESP 16; TEMP 98.6; O2SAT 95
[2017-02-09 21:15] VITALS: BP 129/76; PULSE 78; RESP 17; TEMP 99.3; O2SAT 96
[2017-02-09] MEDS: TAMSULOSIN HCL 0.4 MG CAP PO SCH (21:41)
[2017-02-10 00:20] VITALS: BP 153/76; PULSE 83; RESP 17; TEMP 98.3; O2SAT 93
[2017-02-10] MEDS: INSULIN ASPART SUPPLEMENTAL SCALE SQ SCH ×4 (07:00→20:27)
[2017-02-10 07:21] LABS: AUTOMATED NEUTROPHIL # 3.9 TH/MM3 (1.8-7.7); BASOPHIL % 0.7 % (0.0-2.0); EOSINOPHIL # 0.3 TH/MM3 (0-0.4); EOSINOPHIL % 4.6 % (0.0-4.0); HEMATOCRIT 25.4 % (39.0-51.0); HEMO FLAGS DIFF FINAL; LYMPH % 24.4 % (9.0-44.0); LYMPHOCYTE # 1.6 TH/MM3 (1.0-4.8); MEAN CELL VOLUME 93.9 FL (80.0-100.0); MEAN CORPUSCULAR HEMOGLOBIN 32.1 PG (27.0-34.0); MEAN CORPUSCULAR HGB CONC 34.2 % (32.0-36.0); MONO % 8.4 % (0.0-8.0); NEUT % 61.9 % (16.0-70.0); PLATELET COUNT 178 TH/MM3 (150-450); RED CELL DISTRIBUTION WIDTH 14.2 % (11.6-17.2); WHITE BLOOD COUNT 6.4 TH/MM3 (4.0-11.0)
[2017-02-10 08:00] VITALS: BP 162/88; PULSE 80; RESP 16; TEMP 97.8; O2SAT 94
[2017-02-10 08:01] LABS: BICARBONATE 26.4 MEQ/L (21.0-32.0); POTASSIUM 4.2 MEQ/L (3.5-5.1)
[2017-02-10] MEDS: SODIUM CHLORIDE 0.9% FLUSH 10 ML FLUSH IV FLUSH SCH ×2 (09:00→19:15)
[2017-02-10] MEDS: ESCITALOPRAM OXALATE 20 MG TAB PO SCH (09:36)
[2017-02-10] MEDS: GABAPENTIN 100 MG CAP PO SCH ×3 (09:36→18:26)
[2017-02-10] MEDS: FINASTERIDE 5 MG TAB PO SCH (09:36)
[2017-02-10] MEDS: NIFEdipine 30 MG SUSTAINED RELEASE TAB PO SCH (09:36)
--- NOTE | 2017-02-10 11:25 | RADRPT ---
EXAM DATE/TIME: 02/10/2017 10:25 [facility] COMPARISON: CHEST SINGLE AP, February 07, 2017, 10:56. INDICATIONS : Patient states cough. MEDICAL HISTORY : None. SURGICAL HISTORY : None. ENCOUNTER: Subsequent ACUITY: 4 - 6 days PAIN SCORE: 0/10 LOCATION: Bilateral chest FINDINGS: The lungs are clear without infiltrate, nodule, or mass. There is no appreciable pleural effusion fo r technique. Heart and mediastinum are unremarkable. TEST TECH shunt is again seen. There is old healed lef t clavicular fracture. There are degenerative changes in the thoracic spine with hypertrophic changes . IMPRESSION: No acute cardiopulmonary disease. Rosemarie Johnson MD on February 10, 2017 at 11:22 Board Certified Radiologist. This report was verified electronically.
[2017-02-10 12:00] VITALS: BP 173/89; PULSE 84; RESP 18; TEMP 97; O2SAT 96
--- NOTE | 2017-02-10 12:03 | HHI.NSPN ---
(Gricel Robles) Note Status Status: Progress Note (Gricel Robles) Interval History Interval History Mr. Bui is a 81 -year-old male with history of dementia, NPH - s/p VPS and BPH. He has history of ventriculoperitoneal shunt placement by with good results. He presented to [facility] emergency room with c/o worsening LE weakness. He reports recurrent falls at home. Denies headaches masses or vomiting. He denies fever or chills he does no seizure activity noted. There was not tongue biting. There was no incontinence of stool. He reports urinary incontinence and poor memory. His family is concerned of possible [employer]SE [employer]ESTHESIA [employer]ACTICE shunt malfunction. Admitted to [facility] for further evaluation and treatment. Neurosurgical consultation was requested 02/10: His [employer]SE [employer]ESTH[employer]IA [employer]ACTICE shunt was adjusted down to 90 mmHg, denies headaches, nausea or vomiting. (Gricel Robles) Labs, Micro, & Vital Signs Results Date Time Temp Pulse Resp B/P Pulse Ox O2 Delivery O2 Flow Rate FiO2 02/10/17 08:00 97.8 80 16 162/88 94 02/10/17 07:45 Room Air 02/10/17 00:20 98.3 83 17 153/76 93 02/09/17 21:15 99.3 78 17 129/76 96 02/09/17 16:54 98.6 16 145/77 95 02/10/17 07:00 Intake Total 1258 ml Balance 1258 ml Constitutional Vital Signs Date Time Temp Pulse Resp B/P Pulse Ox O2 Delivery O2 Flow Rate FiO2 02/10/17 08:00 97.8 80 16 162/88 94 02/10/17 07:45 Room Air 02/10/17 00:20 98.3 83 17 153/76 93 02/09/17 21:15 99.3 78 17 129/76 96 02/09/17 16:54 98.6 16 145/77 95 02/10/17 07:00 Intake Total 1258 ml Balance 1258 ml (Gricel Robles) Review of Systems/Exam Exam Mr Bui is alert, awake and oriented to time, place and person. Speech is fluent. Follows commands well. Cranial nerve examination demonstrates the pupils to be equal, round, and reactive to light. Extra-ocular movements are intact. Facial motor and sensory function are normal and symmetrical. Shunt palpable. Good bubble rebound. Neck is soft and supple. Muscle strength is 5/5 in all muscle groups of both upper extremities including deltoid, biceps, triceps, brachioradialis, wrist extension and manager marketing communication. In the lower extremities, strength is 5/5 in both iliopsoas, quadriceps, hamstrings, plantar flexion, dorsiflexion, and extensor hallicus longus. Sensory examination is intact to light touch and sharp/dull discrimination in both the upper and lower extremities, symmetrically. Bilateral plantar flexion response. Hoffmanns sign is negative. There is no clonus Cerebellar examination is intact to [id number] test (Gricel Robles) Exam Mr Bui is alert, awake and oriented to time, place and person. Speech is fluent. Cranial nerve examination demonstrates the pupils to be equal, round, and reactive to light. Extra-ocular movements are intact. Facial motor and sensory function are normal and symmetrical. Gross hearing is intact, bilaterally. The uvula is midline and elevates symmetrically with the soft palate. Sternocleidomastoid and trapezius muscles have normal and symmetrical strength. Other cranial nerves are intact. Sunt palpable. Depresses easily and refills promptly Neck is soft and supple. Cervical spine has a good range of motion in anterior flexion, extension, lateral bending, and rotation without pain. There is no tenderness to palpation to the spinous processes or paraspinal muscles. Muscle testing reveals normal bulk and tone overall without rigidity, spasticity , fasciculations, or atrophy. Muscle strength is 5/5 in all muscle groups of both upper extremities including deltoid, biceps, triceps, brachioradialis, wrist extension and manager marketing communication. In the lower extremities, strength is 5/5 in both iliopsoas, quadriceps, hamstrings, plantar flexion, dorsiflexion, and extensor hallicus longus. Sensory examination is intact to light touch and sharp/dull discrimination in both the upper and lower extremities, symmetrically. Deep tendon reflexes are 1+ and symmetrical in the biceps, triceps, and brachioradialis, bilaterally, in the upper extremities. In the lower extremities , the patellar and Achilles are 1+, bilaterally. There is a bilateral plantar flexion response. Hoffmanns sign is negative. There is no clonus Cerebellar examination is intact to [id number] test, rapid rhythmic alternating motion. (Robert Colmenares MD) Medications Current Medications Current Medications Medications (Trade) Dose Ordered Sig/Joao Route PRN Reason Start Time Stop Time Status Last Admin Dose Admin Sodium Chloride (NS Flush) 2 ml UNSCH PRN IV FLUSH FLUSH AFTER USING IV ACCESS 02/07/17 12:45 Sodium Chloride (NS Flush) 2 ml BID IV FLUSH 02/07/17 21:00 02/08/17 09:20 Acetaminophen (Tylenol) 650 mg Q4H PRN PO TEMP > 100.4 02/07/17 12:45 Ondansetron HCl (Zofran Inj) 4 mg Q6H PRN IVP NAUSEA OR VOMITING 02/07/17 12:45 Magnesium Hydroxide (Milk Of Conduit Liq) 30 ml Q12H PRN PO CONSTIPATION 02/07/17 12:45 02/08/17 09:17 Temazepam (Restoril) 15 mg HS PRN PO INSOMNIA 02/07/17 12:45 Naloxone HCl 0.4 mg 0.4 mg UNSCH PRN IV SEE LABEL COMMENTS 02/07/17 12:45 Potassium Chloride/Sodium Chloride (1/2 NS + KCl 20 Meq Inj) 1,000 ml @ 84 mls/hr [id number] IV 02/07/17 13:00 02/09/17 17:00 Escitalopram Oxalate (Lexapro) 20 mg DAILY PO 02/08/17 09:00 02/10/17 09:36 Finasteride (Proscar) 5 mg DAILY PO 02/08/17 09:00 02/10/17 09:36 Tamsulosin HCl (Flomax) 0.4 mg HS PO 02/07/17 21:00 02/09/17 21:41 Gabapentin (Neurontin) 200 mg TID PO 02/07/17 13:00 02/10/17 09:36 Nifedipine (Procardia Xl) 30 mg DAILY PO 02/08/17 16:00 02/10/17 09:36 Clonidine (Catapres) 0.2 mg Q6H PRN PO SBP above 160 02/08/17 15:45 02/08/17 17:10 Enalaprilat (Vasotec Inj) 1.25 mg Q6H PRN IV sbp above 160 02/08/17 15:45 (Gricel Robles) Current Medications Current Medications Sodium Chloride 2 ml 2 ml UNSCH PRN IVF FLUSH AFTER USING IV ACCESS; Start at 11:00; Stop 02/07/17 at 12:43; Status DC Sodium Chloride 1,000 ml @ 125 mls/hr Q8H IV ; Start 02/07/17 at 10:48; Stop at 18:47; Status DC Sodium Chloride (NS 1000 ml Inj) 1,000 ml @ 999 mls/hr BOLUS ONCE IV Last administered on 02/07/17 12:23; Start 02/07/17 at 12:00; Stop 02/07/17 at 13:00 ; Status DC Sodium Chloride (NS Flush) 2 ml UNSCH PRN IV FLUSH FLUSH AFTER USING IV ACCESS ; Start 02/07/17 at 12:45 Sodium Chloride (NS Flush) 2 ml BID IV FLUSH Last administered on 02/08/17 09: 20; Start 02/07/17 at 21:00 Acetaminophen (Tylenol) 650 mg Q4H PRN PO TEMP > 100.4; Start 02/07/17 at 12:45 Ondansetron HCl (Zofran Inj) 4 mg Q6H PRN IVP NAUSEA OR VOMITING; Start at 12:45 Magnesium Hydroxide (Milk Of Magnesia Liq) 30 ml Q12H PRN PO CONSTIPATION Last administered on 02/08/17 09:17; Start 02/07/17 at 12:45 Temazepam (Restoril) 15 mg HS PRN PO INSOMNIA; Start 02/07/17 at 12:45 Naloxone HCl 0.4 mg 0.4 mg UNSCH PRN IV SEE LABEL COMMENTS; Start 02/07/17 at 12:45 Potassium Chloride/Sodium Chloride (1/2 NS + KCl 20 Meq Inj) 1,000 ml @ 84 mls/ hr [id number] IV Last administered on 02/09/17 17:00; Start 02/07/17 at 13:00 Escitalopram Oxalate (Lexapro) 20 mg DAILY PO Last administered on 02/10/17 09 :36; Start 02/08/17 at 09:00 Finasteride (Proscar) 5 mg DAILY PO Last administered on 02/10/17 09:36; Start 02/08/17 at 09:00 Gabapentin (Neurontin) 800 mg TID PO ; Start 02/07/17 at 13:00; Stop 02/07/17 at 13:00; Status DC Tamsulosin HCl (Flomax) 0.4 mg HS PO Last administered on 02/09/17 21:41; Start 02/07/17 at 21:00 Non-Formulary Medication 10 mg HS PO ; Start 02/07/17 at 21:00; Stop 02/07/17 at 21:00; Status DC Gabapentin (Neurontin) 200 mg TID PO Last administered on 02/10/17 09:36; Start 02/07/17 at 13:00 Insulin Aspart (NovoLOG SUPPLEMENTAL SCALE) 1 ACHS SLIDING SCALE SQ Last administered on 02/10/17 11:00; Start 02/07/17 at 16:00 Iohexol (Omnipaque 300 Inj) 9 ml STK-MED ONCE .XX Last administered on 14:56; Start 02/07/17 at 14:56; Stop 02/07/17 at 15:15; Status DC Nifedipine (Procardia Xl) 30 mg DAILY PO Last administered on 02/10/17 09:36; Start 02/08/17 at 16:00 Clonidine (Catapres) 0.2 mg Q6H PRN PO SBP above 160 Last administered on 17:10; Start 02/08/17 at 15:45 Enalaprilat (Vasotec Inj) 1.25 mg Q6H PRN IV sbp above 160; Start 02/08/17 at 15:45 (Robert Colmenares MD) Medical Decision Making MDM Remarks 81 y/o male with NPH, DOCTOR OF NURSE ANESTHESIA PRACTICE shunt shuntogram with patent shunt shunt setting decreased to 90 mmHg 02/08/17 (Gricel Robles) MDM Remarks Last Impressions Head CT 02/07/17 1048 Signed Impressions: Service Date/Time: Tuesday, February 07, 2017 11:30 - CONCLUSION: Stable ventriculoperitoneal shunt No evidence of hydrocephalus, acute infarct, hemorrhage, mass effect or edema. Cerebral white matter disease characteristic of mild to moderate chronic microvascular ischemic changes. Tobi F. Shlomo, MD Chest X-Ray 02/07/17 1048 Signed Impressions: Service Date/Time: Tuesday, February 07, 2017 10:56 - CONCLUSION: Hyperinflation. Clear lungs. Shadi Jimenez MD Shunt Study (Imaging) 02/07/17 0000 Signed Impressions: Service Date/Time: Tuesday, February 07, 2017 13:38 - CONCLUSION: Intact [employer] NURSE ANESTHESIA PRACTICE shunt tubing which terminates in the right midabdomen. Henrry Garnett MD Shunt Study 02/07/17 0000 Signed Impressions: Service Date/Time: Tuesday, February 07, 2017 15:41 - CONCLUSION: Patent shunt. Tobi Keenan MD (Robert Colmenares MD) Plan Plan Remarks cont current care cont therapy and gait training (Gricel Robles) Plan Remarks 81 y/o male with NPH, DOCTOR [employer] NURSE ANESTHESIA PRACTICE shunt shuntogram with patent shunt shunt setting decreased to 90 mmHg 02/08/17 (Robert Colmenares MD) Attending Statement Continue neuro checks in a serial fashion. His shunt has been reprogrammed to a lower setting. We will assess if there is any improvement Respiratory. Continue pulmonary toilette, nasotracheal suction, and breathing treatments with nebulizers. Daily PT and OT Nutrition. Continue Oral diet Renal. Continue to monitor closely urine output, BUN and creatinine Endocrine. Continue to Monitor serial Acu checks and SSI for tight control Continue to ID monitor for signs of infection Continue Protonix for stress ulcer prophylaxis Continue Miguelito hose and SCD's for DVT prophylaxis The exam, history, and the medical decision-making described in the above note were completed with the assistance of the mid-level provider. I reviewed and agree with the findings presented. I attest that I had a [id number] encounter with the patient on the same day, and personally performed and documented my assessment and findings in the medical record. (Robert Colmenares MD) Gricel Robles Feb 10, 2017 12:03 Robert Colmenares MD Feb 10, 2017 13:20
--- NOTE | 2017-02-10 12:15 | HHI.PR ---
Subjective Remarks Pt overall still feeling very weak but is anxious for discharge Pt is planned to go to SNF following this hospitalization Objective Vitals Vital Signs Date Time Temp Pulse Resp B/P Pulse Ox O2 Delivery O2 Flow Rate FiO2 02/10/17 08:00 97.8 80 16 162/88 94 02/10/17 07:45 Room Air 02/10/17 00:20 98.3 83 17 153/76 93 02/09/17 21:15 99.3 78 17 129/76 96 02/09/17 16:54 98.6 16 145/77 95 02/09/17 02/09/17 02/10/17 15:00 23:00 07:00 Intake Total 898 ml 240 ml 120 ml Balance 898 ml 240 ml 120 ml Intake Oral 240 ml 120 ml IV Total 898 ml # Voids 3 3 # Bowel Movements 0 0 Result Diagram: 02/10/17 0601 02/10/17 0601 Other Results Laboratory Tests Test 02/09/17 02/10/17 05:48 06:01 White Blood Count 5.4 TH/MM3 6.4 TH/MM3 Red Blood Count 2.52 MIL/MM3 2.70 MIL/MM3 Hemoglobin 8.0 GM/DL 8.7 GM/DL Hematocrit 23.7 % 25.4 % Mean Corpuscular Volume 94.0 FL 93.9 FL Mean Corpuscular Hemoglobin 31.9 PG 32.1 PG Mean Corpuscular Hemoglobin 34.0 % 34.2 % Concent Red Cell Distribution Width 14.2 % 14.2 % Platelet Count 150 TH/MM3 178 TH/MM3 Mean Platelet Volume 8.7 FL 8.9 FL Neutrophils (%) (Auto) % 61.9 % Lymphocytes (%) (Auto) % 24.4 % Monocytes (%) (Auto) % 8.4 % Eosinophils (%) (Auto) % 4.6 % Basophils (%) (Auto) % 0.7 % Neutrophils # (Auto) TH/MM3 3.9 TH/MM3 Lymphocytes # (Auto) TH/MM3 1.6 TH/MM3 Monocytes # (Auto) TH/MM3 0.5 TH/MM3 Eosinophils # (Auto) TH/MM3 0.3 TH/MM3 Basophils # (Auto) TH/MM3 0.0 TH/MM3 CBC Comment AUTO DIFF DIFF FINAL Differential Total Cells 100 Counted Neutrophils % (Manual) 62 % Lymphocytes % 31 % Monocytes % 4 % Eosinophils % 3 % Neutrophils # (Manual) 3.3 TH/MM3 Differential Comment FINAL DIFF MANUAL Platelet Estimate NORMAL Platelet Morphology Comment NORMAL Red Cell Morphology Comment NORMAL Sodium Level 140 MEQ/L 140 MEQ/L Potassium Level 4.6 MEQ/L 4.2 MEQ/L Chloride Level 106 MEQ/L 106 MEQ/L Carbon Dioxide Level 28.6 MEQ/L 26.4 MEQ/L Anion Gap 5 MEQ/L 8 MEQ/L Blood Urea Nitrogen 35 MG/DL 31 MG/DL Creatinine 2.09 MG/DL 2.20 MG/DL Estimat Glomerular Filtration 31 ML/MIN 29 ML/MIN Rate Random Glucose 136 MG/DL 138 MG/DL Calcium Level 8.8 MG/DL 8.8 MG/DL Total Creatine Kinase 1352 U/L Creatine Kinase MB 1.8 NG/ML Creatine Kinase MB % 0.1 % Magnesium Level 2.0 MG/DL Imaging Last Impressions Head CT 02/07/17 1048 Signed Impressions: Service Date/Time: Tuesday, February 07, 2017 11:30 - CONCLUSION: Stable ventriculoperitoneal shunt No evidence of hydrocephalus, acute infarct, hemorrhage, mass effect or edema. Cerebral white matter disease characteristic of mild to moderate chronic microvascular ischemic changes. Tobi Keenan MD Chest X-Ray 02/07/17 1048 Signed Impressions: Service Date/Time: Tuesday, February 07, 2017 10:56 - CONCLUSION: Hyperinflation. Clear lungs. Shadi Jimenez MD Shunt Study (Imaging) 02/07/17 0000 Signed Impressions: Service Date/Time: Tuesday, February 07, 2017 13:38 - CONCLUSION: Intact [employer]RA[employer] MARKET OPERATOR shunt tubing which terminates in the right midabdomen. Henrry Garnett MD Shunt Study 02/07/17 0000 Signed Impressions: Service Date/Time: Tuesday, February 07, 2017 15:41 - CONCLUSION: Patent shunt. Tobi Keenan MD Objective Remarks General: NAD, Awake and alert Chest: CTA Cardiac: Regular Abd: +Bs, soft ND/NT Ext: no edema A/P Problem List: (1) Rhabdomyolysis Status: Acute Plan: - improving - continue IVFs - renal function improving - Creatinine 2.32 (02/07/17), 2.08 (02/08/17), 2.09 (02/09/17) - CK 1828 (02/07/17), 1681 (02/08/17), 1,352 (02/09/17) - I have reviewed the pt's outpt labs. Pt's Cr has ranged ranged 1.99 - 2.05 since late March 2016 - Pt's renal functions appear to be at baseline. Outpt f/u with Nephrology would be reasonable. - Await repeat CK/CKMB for today - repeat BMP, CK in AM - Encourage oral intake - Anticipate discharge to SNF tomorrow (2) Generalized weakness Status: Acute Plan: - Patient with worsening weakness and recurrent falls at home - CK elevated at 1828 on admission - Patient with history of normal pressure hydrocephalus. Patient had GRAIN BROKER AND MARKET OPERATOR shunt placed by Dr. Robbins 2014 - PT - comgmt with Neurosurgery. Case d/w Dr. Colmenares - Shuntogram (02/07/17) --> no evidence of shunt malfunction - Dr. Colmenares reprogramed the shunt to lower settings, to allow for more cerebrospinal fluid drainage (3) NPH (normal pressure hydrocephalus) Status: Acute Plan: - see above (4) DM2 (diabetes mellitus, type 2) Status: Acute Plan: - hold metformin, resume upon discharge - SSI (5) BPH (benign prostatic hyperplasia) Status: Chronic Plan: - continue outpt medications (6) HTN (hypertension) Status: Acute Plan: - improved since starting procardia XL - procardia XL 30mg daily - observe (7) Anemia Status: Acute Plan: - normocytic - likely dilutional - Hg 8.0 (02/09/17) - repeat CBC in AM - iron indices --> serum iron 70, ferritin 14 - No record of recent colon[facility] - outpt f/u with GI for screening colonoscopy would be reasonable, if pt agrees. Assessment and Plan Patient examined. Assessment and plan formulated with Kadie Moctezuma PA-C. I agree with the above. nph with falls and rhabdo. vps adjusted a/ckd seems baseline. ck better. ivf. d/c to snf tomorrow. Problem Qualifiers (1) Rhabdomyolysis: Qualified Code: M62.82 - Non-traumatic rhabdomyolysis (2) DM2 (diabetes mellitus, type 2): (3) BPH (benign prostatic hyperplasia): (4) Anemia: Qualified Code: D64.9 - Anemia, unspecified type Kadie Moctezuma Feb 10, 2017 12:15 Donavan Gomez MD Feb 10, 2017 19:36
[2017-02-10 13:35] LABS: CKMB 1.3 NG/ML (0.5-3.6)
[2017-02-10] MEDS: cloNIDine HCL 0.2 MG TAB PO PRN (15:12)
[2017-02-10] MEDS: SODIUM CHLOR 0.9% 1000 ML INJ 1,000 ML IV SCH (15:13)
[2017-02-10 16:00] VITALS: BP 127/85; PULSE 96; RESP 19; TEMP 97.5; O2SAT 97
[2017-02-10 20:15] VITALS: BP 127/64; PULSE 75; RESP 16; TEMP 97.5; O2SAT 96
[2017-02-10] MEDS: TAMSULOSIN HCL 0.4 MG CAP PO SCH (20:23)
[2017-02-10 23:20] VITALS: BP 135/69; PULSE 73; RESP 18; TEMP 97.8; O2SAT 95
[2017-02-11 03:30] VITALS: BP 141/72; PULSE 76; RESP 17; TEMP 96.3; O2SAT 97
[2017-02-11] MEDS: SODIUM CHLOR 0.9% 1000 ML INJ 1,000 ML IV SCH (03:30)
[2017-02-11] MEDS: INSULIN ASPART SUPPLEMENTAL SCALE SQ SCH ×2 (06:12→12:24)
[2017-02-11 07:49] LABS: BICARBONATE 26.2 MEQ/L (21.0-32.0)
[2017-02-11 08:05] VITALS: BP 141/69; PULSE 69; RESP 17; TEMP 98; O2SAT 95
[2017-02-11] MEDS: SODIUM CHLORIDE 0.9% FLUSH 10 ML FLUSH IV FLUSH SCH (09:00)
[2017-02-11] MEDS: ESCITALOPRAM OXALATE 20 MG TAB PO SCH (10:02)
[2017-02-11] MEDS: FINASTERIDE 5 MG TAB PO SCH (10:02)
[2017-02-11] MEDS: GABAPENTIN 100 MG CAP PO SCH ×2 (10:02→12:24)
[2017-02-11] MEDS: NIFEdipine 30 MG SUSTAINED RELEASE TAB PO SCH (10:02)
[2017-02-11] MEDS ORDERED: NIFE30TA8 PO (11:02)
--- NOTE | 2017-02-11 11:04 | HHI.DCPOC ---
Discharge Care Plan Diagnosis: (1) NPH (normal pressure hydrocephalus) (2) Acute kidney injury (3) Rhabdomyolysis (4) Anemia (5) HTN (hypertension) (6) BPH (benign prostatic hyperplasia) (7) DM2 (diabetes mellitus, type 2) (8) Generalized weakness Goals to Promote Your Health * To prevent worsening of your condition and complications * To maintain your health at the optimal level Directions to Meet Your Goals Take your medications as prescribed Follow your dietary instruction Follow activity as directed Keep your appointments as scheduled Take your immunizations and boosters as scheduled If your symptoms worsen call your PCP, if no PCP go to Urgent Care Center or Emergency Room Smoking is Dangerous to Your Health. Avoid second hand smoke Call the 24-hour hour crisis hotline for domestic abuse at Kadie Moctezuma Feb 11, 2017 11:04
--- NOTE | 2017-02-11 11:12 | HHI.DS ---
Discharge Summary Admission Date Feb 07, 2017 at 12:58 Discharge Date: Feb 11, 2017 Admitting Diagnosis rhabdomyolysis, acute kidney injury, multiple falls (1) Rhabdomyolysis Diagnosis: Principal (2) Generalized weakness Diagnosis: Secondary (3) NPH (normal pressure hydrocephalus) Diagnosis: Secondary (4) DM2 (diabetes mellitus, type 2) Diagnosis: Secondary (5) BPH (benign prostatic hyperplasia) Diagnosis: Secondary (6) HTN (hypertension) Diagnosis: Secondary (7) Anemia Diagnosis: Secondary Consultants Dr. Robert Colmenares - neurosurgery Brief History Pt is a pleasant 81 y/o M with h/o dementia, NPH - s/p VPS and BPH. Pt presented to [place] with c/o worsening LE weakness. Patient complained of recurrent falls at home. Family concerned of possible [employer]ICAL MODEL [employer]KER AND TESTER shunt malfunction. Patients CK elevated at 1828. CT head (02/07/17) showed no acute findings. Patient admitted to [facility] for further evaluation and treatment. CBC/BMP: 02/10/17 0601 02/11/17 0645 Significant Findings Laboratory Tests Test 02/09/17 02/10/17 02/10/17 02/11/17 05:48 06:01 12:03 06:45 Red Blood Count 2.52 MIL/MM3 2.70 MIL/MM3 (4.50-5.90) (4.50-5.90) Hemoglobin 8.0 GM/DL 8.7 GM/DL (13.0-17.0) (13.0-17.0) Hematocrit 23.7 % 25.4 % (39.0-51.0) (39.0-51.0) Blood Urea Nitrogen 35 MG/DL (7-18) 31 MG/DL (7-18) 34 MG/DL (7-18) Creatinine 2.09 MG/DL 2.20 MG/DL 2.05 MG/DL (0.60-1.30) (0.60-1.30) (0.60-1.30) Estimat Glomerular Filtration 31 ML/MIN (>89) 29 ML/MIN (>89) 31 ML/MIN (>89) Rate Random Glucose 136 MG/DL 138 MG/DL 138 MG/DL (74-106) (74-106) (74-106) Total Creatine Kinase 1352 U/L 1185 U/L 784 U/L (39-308) (39-308) (39-308) Monocytes (%) (Auto) 8.4 % (0.0-8.0) Eosinophils (%) (Auto) 4.6 % (0.0-4.0) Chloride Level 108 MEQ/L (98-107) Calcium Level 8.2 MG/DL (8.5-10.1) Imaging Last Impressions Head CT 02/07/17 1048 Signed Impressions: Service Date/Time: Tuesday, February 07, 2017 11:30 - CONCLUSION: Stable ventriculoperitoneal shunt No evidence of hydrocephalus, acute infarct, hemorrhage, mass effect or edema. Cerebral white matter disease characteristic of mild to moderate chronic microvascular ischemic changes. Tobi Keenan MD Chest X-Ray 02/07/17 1048 Signed Impressions: Service Date/Time: Tuesday, February 07, 2017 10:56 - CONCLUSION: Hyperinflation. Clear lungs. Shadi Jimenez MD Shunt Study (Imaging) 02/07/17 0000 Signed Impressions: Service Date/Time: Tuesday, February 07, 2017 13:38 - CONCLUSION: Intact [employer] TE[employer] shunt tubing which terminates in the right midabdomen. Henrry Garnett MD Shunt Study 02/07/17 0000 Signed Impressions: Service Date/Time: Tuesday, February 07, 2017 15:41 - CONCLUSION: Patent shunt. Tobi Keenan MD PE at Discharge General: NAD, Awake and alert Chest: CTA Cardiac: Regular Abd: +Bs, soft ND/NT Ext: no edema Hospital Course Patient presented with worsening weakness and recurrent falls at home. CK was elevated at 1828 on admission and pt noted to have CHERYL. Patient with history of normal pressure hydrocephalus and had previously had OPTICAL MODEL MAKER AND TESTER shunt placed by Dr. Robbins 2014. Neurosurgery was consulted at admission. Shuntogram (02/07/17) showed no evidence of shunt malfunction. Dr. Colmenares reprogramed the shunt to lower settings, to allow for more cerebrospinal fluid drainage and the pt seemed to be slowly improving with PT but will still need continued rehab/PT efforts following this admission. Pts rhabdomyolysis and acute kidney injury was treat with IVF. Creatinine slowly improved, 2.32 (02/07/17), 2.08 (02/08/17), 2.09 (02/09), 2.05 (02/11/17). CK slowly improved as well, 1828 (02/07/17), 1681 (02/08/17 ), 1,352 (02/09/17), 784 (02/11/17). Pt's oupt labs revealed Cr has ranged ranged 1.99 - 2.05 since late March 2016. Pt's renal functions appear to be at baseline. Outpt f/u with Nephrology would be reasonable. Pts BP was elevated during this admission and he was started on Procardia XL 30mg po daily with improvement. He will be discharged on this medication as a new medicine. Pt was noted to have a normocytic anemia as well, felt to possibly be dilutional related to all the IVF hydration he received. Iron indices noted serum iron 70, ferritin 14. There was no record of recent colonoscopy/EGD in the [facility] EHR or [employer]. Outpt f/u with GI for screening colonoscopy would be reasonable, if pt agrees. Pt will need to followup with his PCP, Dr. Kvng Harris, 1 week after discharge from SNF. His statin will be held at discharge and can be resumed when his PCP clears him to do so. Pt will need to followup with Dr. Colmenares or Dr. Robbins in 2 weeks Pt can followup with Nephrology regarding his CKD in 2 weeks Pt should followup with GI regarding his anemia in 2 weeks. Pt Condition on Discharge: Stable Discharge Disposition: Discharge to SNF Discharge Instructions DIET: Follow Instructions for: Heart Healthy Diet Activities you can perform: Regular-No Restrictions Follow up Referrals: Neurosurgery - 2 Weeks with Robert Colmenares MD PCP Follow-up - [address] Kvng Harris New Medications: Nifedipine ER 24 HR (Nifedipine ER 24 HR) 30 Mg Tab 30 MG PO DAILY Blood Pressure Management #31 TAB Continued Medications: Escitalopram (Escitalopram) 20 Mg Tab 20 MG PO DAILY #30 Ref 0 TAB Finasteride (Finasteride) 5 Mg Tab 5 MG PO DAILY Do not crush. Manage Prostate Problems #30 Ref 0 TAB Gabapentin (Gabapentin) 300 Mg Cap 800 MG PO TID #90 Ref 0 CAP Metformin (Metformin) 1,000 Mg Tab 1000 MG PO BIDPC With meals Blood Sugar Management #60 Ref 0 TAB Tamsulosin (Tamsulosin) 0.4 Mg Cap 0.4 MG PO HS Manage Prostate Problems #30 Ref 0 CAP Discontinued Medications: Diclofenac Sodium DR (Diclofenac Sodium DR) 75 Mg Tabdr 75 MG PO BID #60 Ref 0 TAB Rosuvastatin (Rosuvastatin) 10 Mg Tab 10 MG PO HS Cholesterol Management Ref 0 TAB Kadie Moctezuma Feb 11, 2017 11:12 Donavan Gomez MD Feb 11, 2017 16:51
[2017-02-11] MEDS ORDERED: TRAM50TA PO (13:17)
== END 2017-02-11 14:06 ==
LOC: NEPE 09:45 → NEDA 12:58 → INTOOBSV 12:58 → N06A 15:29 → N06B 16:27 → N06A 16:29
PROVIDERS: ADMIT Hospitalist; ATTEND Hospitalist
DX: R53.1 Weakness (principal); M62.82 Rhabdomyolysis; R29.6 Repeated falls; N17.9 Acute kidney failure, unspecified; R74.8 Abnormal levels of other serum enzymes; E11.9 Type 2 diabetes mellitus without complications; I10 Essential (primary) hypertension; D64.9 Anemia, unspecified; G91.2 (Idiopathic) normal pressure hydrocephalus; N40.0 Benign prostatic hyperplasia without lower urinary tract symptoms; F41.9 Anxiety disorder, unspecified; F32.9 Major depressive disorder, single episode, unspecified; F03.90 Unspecified dementia, unspecified severity, without behavioral disturbance, psychotic disturbance, mood disturbance, and anxiety; E78.00 Pure hypercholesterolemia, unspecified; Z85.820 Personal history of malignant melanoma of skin; Z96.651 Presence of right artificial knee joint; Z79.84 Long term (current) use of oral hypoglycemic drugs
CPT/HCPCS: 61070; 70250; 70450; 71010; 71020; 72040; 74000; 75809; 76937; 80048; 80053; 81001; 82272; 82550; 82552; 82728; 82948; 83540; 83550; 83615; 83735; 84443; 84484; 85007; 85025; 85027; 85044; 85610; 85730; 93005; 96374; 97110; 97116; 97163; 99285; G0378; J1815; J7030; Q9967

== ENCOUNTER 2017-10-23 08:38 | Inpatient (IN) | payer MEDICARE ==
[2017-10-23] VITALS (10 sets, daily range): BP systolic 118–212; BP diastolic 60–93; PULSE 64–80; RESP 18–20; TEMP 97.3–99; O2SAT 92–98
[~2017-10-23] VITALS: Ht 182.9 cm; Wt 62.0 kg
[~2017-10-23 08:38] MED LIST changes: -DICL75 PO; +FINA5TAB2 PO; +GABA300C5 PO; -GABA400C5 PO; -GLUCTAB PO; +METF1000 PO; +NIFE30TA8 PO; -PROS5TAB2 PO; -ROSU40 PO; +TAMS0.4C4 PO; -TRAD5TAB PO; +TRAM50TA PO; -ULTR50TA PO
--- NOTE | 2017-10-23 08:53 | PD ---
HPI Chief Complaint: syncope, fall Time Seen by Provider: 08:49 Travel History International Travel<30 days: No Contact w/Intl Traveler<30days: No History of Present Illness HPI 81-year-old male arrives to the ER by EMS. He woke up to use the bathroom at approx 2am and fell to the ground. He reports uncertainty if he lost consciousness however he did remain there until 8 the morning and reportedly as a courtesy to his to avoid waking her up. EMS on scene observed weakness in the right lower extremity which the patient states is chronic in nature. The patient also states he has chronic low back pain, which is his main complaint now. He denies pain in the region of the hips or in the right lower extremity. The reports yesterday evening the patient had difficulty ambulating from the bedroom to his living room. Normally the patient is ambulatory with a cane. reports intermittent weakness of RLE. PFSH Past Medical History Arthritis: Yes Anxiety: Yes Depression: Yes Heart Rhythm Problems: No Cancer: Yes (MELANOMA ) Cardiovascular Problems: Yes (ARRHYTHMIA) High Cholesterol: Yes Chemotherapy: No Chest Pain: No Congestive Heart Failure: No Cerebrovascular Accident: No Diabetes: Yes (TYPE 2) Endocrine: Yes Genitourinary: No Hepatitis: No Immune Disorder: No Musculoskeletal: Yes (RIGHT KNEE REPLACEMENT) Neurologic: Yes (BALANCE DIFFICULTIES) Psychiatric: No Reproductive: No Respiratory: No Radiation Therapy: No Seizures: No Thyroid Disease: No Past Surgical History Abdominal Surgery: No AICD: No Cardiac Surgery: No Ear Surgery: No Endocrine Surgery: No Eye Surgery: Yes (BILATERAL CATARACT SURGERY ) Genitourinary Surgery: No Gynecologic Surgery: No Joint Replacement: Yes (RT KNEE) Oral Surgery: No Pacemaker: No Thoracic Surgery: No Other Surgery: Yes (R KNEE /CATARACT, SHUNT IN BRAIN ) Social History Alcohol Use: No (PT WAIFE STATES HE NO LONGER DRINKS ) Tobacco Use: No Substance Use: No Allergies-Medications (Allergen,Severity, Reaction): Coded Allergies: No Known Allergies (Verified Allergy, Unknown, 10/23/17) Reported Meds & Prescriptions Reported Meds & Active Scripts Active Tramadol (Tramadol HCl) 50 Mg Tab 50 Mg PO Q8HR PRN Reported Diclofenac Sodium DR (Diclofenac Sodium) 75 Mg Tabdr 75 Mg PO BID Tamsulosin (Tamsulosin HCl) 0.4 Mg Cap 0.4 Mg PO HS Escitalopram (Escitalopram Oxalate) 20 Mg Tab 20 Mg PO DAILY Metformin (Metformin HCl) 1,000 Mg Tab 1,000 Mg PO BIDPC With meals Gabapentin 300 Mg Cap 800 Mg PO TID Finasteride 5 Mg Tab 5 Mg PO DAILY Do not crush. Review of Systems Except as stated in HPI: all other systems reviewed are Neg General / Constitutional: No: Fever Cardiovascular: No: Chest Pain or Discomfort Respiratory: No: Cough, Shortness of Breath Physical Exam Narrative GENERAL: 81-year-old male well-nourished well-developed answers questions appropriately SKIN: Focused skin assessment warm/dry. HEAD: Atraumatic. Normocephalic. EYES: Pupils equal and round. No scleral icterus. No injection or drainage. ENT: No nasal bleeding or discharge. Mucous membranes pink and moist. NECK: Trachea midline. No JVD. CARDIOVASCULAR: Regular rate and rhythm. No murmur appreciated. RESPIRATORY: No accessory muscle use. Clear to auscultation. Breath sounds equal bilaterally. GASTROINTESTINAL: Abdomen soft, non-tender, nondistended. Hepatic and splenic margins not palpable. MUSCULOSKELETAL: No obvious deformities. No clubbing. No cyanosis. No edema. NEUROLOGICAL: Cranial nerves III through XII normal. There is weakness with plantar flexion and dorsiflexion on the region of the right ankle compared to left. Hip flexion is intact bilaterally with slightly diminished on the right side. Sensation is intact bilateral lower extremities. PSYCHIATRIC: Appropriate mood and affect; insight and judgment normal. Data Data Last Documented VS Vital Signs Date Time Temp Pulse Resp B/P (MAP) Pulse Ox O2 Delivery O2 Flow Rate FiO2 10/23/17 10:20 66 18 201/92 (128) 95 Room Air 10/23/17 08:47 97.9 Orders Orders Electrocardiogram (10/23/17 08:49) Basic Metabolic Panel (Bmp) (10/23/17 08:49) Complete Blood Count With Diff (10/23/17 08:49) Troponin I (10/23/17 08:49) Ct Brain W/O Iv Contrast(Rout) (10/23/17 08:49) Ecg Monitoring (10/23/17 08:49) Iv Access Insert/Monitor (10/23/17 08:49) Oximetry (10/23/17 08:49) Sodium Chloride 0.9% Flush (Ns Flush) (10/23/17 09:00) Orthostatic Vital Signs (10/23/17 08:49) Pelvis, Ap Only (Routine) (10/23/17 ) Acetamin-Hydrocod 325-5 Mg ([place] 5-325 (10/23/17 09:00) Creatine Kinase (Cpk) (10/23/17 09:39) Enalaprilat Inj (Vasotec Inj) (10/23/17 10:45) Admit Order (Ed Use Only) (10/23/17 ) Supervisor Stripping / Telemetry ANGEL LUIS.Q8H (10/23/17 10:34) Vital Signs (Adult) Q4H (10/23/17 10:34) Diet Heart Healthy (10/23/17 Lunch) Activity Bed Rest (10/23/17 10:34) Notify Dr: Other (10/23/17 10:34) Labs Laboratory Tests Test 10/23/17 08:50 White Blood Count 7.2 TH/MM3 Red Blood Count 3.56 MIL/MM3 Hemoglobin 11.2 GM/DL Hematocrit 33.3 % Mean Corpuscular Volume 93.6 FL Mean Corpuscular Hemoglobin 31.3 PG Mean Corpuscular Hemoglobin Concent 33.5 % Red Cell Distribution Width 13.8 % Platelet Count 207 TH/MM3 Mean Platelet Volume 7.6 FL Neutrophils (%) (Auto) 68.6 % Lymphocytes (%) (Auto) 19.5 % Monocytes (%) (Auto) 8.2 % Eosinophils (%) (Auto) 3.2 % Basophils (%) (Auto) 0.5 % Neutrophils # (Auto) 4.9 TH/MM3 Lymphocytes # (Auto) 1.4 TH/MM3 Monocytes # (Auto) 0.6 TH/MM3 Eosinophils # (Auto) 0.2 TH/MM3 Basophils # (Auto) 0.0 TH/MM3 CBC Comment DIFF FINAL Differential Comment Blood Urea Nitrogen 44 MG/DL Creatinine 2.13 MG/DL Random Glucose 125 MG/DL Calcium Level 9.4 MG/DL Sodium Level 141 MEQ/L Potassium Level 3.7 MEQ/L Chloride Level 108 MEQ/L Carbon Dioxide Level 23.9 MEQ/L Anion Gap 9 MEQ/L Estimat Glomerular Filtration Rate 30 ML/MIN Total Creatine Kinase 119 U/L Troponin I 0.24 NG/ML MDM Medical Decision Making Medical Screen Exam Complete: Yes Emergency Medical Condition: Yes Medical Record Reviewed: Yes Differential Diagnosis arrhythmia, metabolic disarray, normal pressure hydrocephalus Narrative Course CBC & BMP Diagram 10/23/17 08:50 Calcium Level 9.4 Tn 0.24 Total CK 119 EKG sinus rate [address] changes Last Impressions Head CT 10/23/17 0849 Signed Impressions: Service Date/Time: September 09:26 - CONCLUSION: 1. Stable exam 2. No evidence of acute infarct, hemorrhage mass or edema. 3. Stable ventriculomegaly status post RANGER AIDE shunting. Tobi Keenan MD Pelvis X-Ray 10/23/17 0000 Signed Impressions: Service Date/Time: September 09:09 - CONCLUSION: 1. Intact bony pelvis and hips. 2. Advanced lower lumbar degenerative disc disease. Tobi Keenan MD case d/w Dr Gomez for REPLACED BY [facility] Diagnosis Primary Impression: NPH (normal pressure hydrocephalus) Additional Impressions: Lumbar back pain Gait difficulty Weakness of extremity Fall Qualified Codes: W19.XXXA - Unspecified fall, initial encounter HTN (hypertension) Qualified Codes: I10 - Essential (primary) hypertension Elevated troponin Admitting Information Admitting Physician Requests: Admit Cory Milan MD Oct 23, 2017 08:53
[2017-10-23] MEDS ORDERED: ACETAMINOPHEN/HYDROcodone 325 MG/5 MG TAB PO ONE (09:00)
[2017-10-23] MEDS ORDERED: SODIUM CHLORIDE 0.9% FLUSH 10 ML FLUSH IVF PRN (09:00)
[2017-10-23 09:09] LABS: AUTOMATED NEUTROPHIL # 4.9 TH/MM3 (1.8-7.7); BASOPHIL % 0.5 % (0.0-2.0); EOSINOPHIL # 0.2 TH/MM3 (0-0.4); EOSINOPHIL % 3.2 % (0.0-4.0); HEMATOCRIT 33.3 % (39.0-51.0); HEMOGLOBIN 11.2 GM/DL (13.0-17.0); LYMPH % 19.5 % (9.0-44.0); LYMPHOCYTE # 1.4 TH/MM3 (1.0-4.8); MEAN CELL VOLUME 93.6 FL (80.0-100.0); MEAN CORPUSCULAR HEMOGLOBIN 31.3 PG (27.0-34.0); MEAN CORPUSCULAR HGB CONC 33.5 % (32.0-36.0); MEAN PLATELET VOLUME 7.6 FL (7.0-11.0); MONO % 8.2 % (0.0-8.0); MONOCYTE # 0.6 TH/MM3 (0-0.9); NEUT % 68.6 % (16.0-70.0); PLATELET COUNT 207 TH/MM3 (150-450); RED BLOOD COUNT 3.56 MIL/MM3 (4.50-5.90); RED CELL DISTRIBUTION WIDTH 13.8 % (11.6-17.2); WHITE BLOOD COUNT 7.2 TH/MM3 (4.0-11.0)
[2017-10-23 09:27] LABS: BICARBONATE 23.9 MEQ/L (21.0-32.0); CALCIUM 9.4 MG/DL (8.5-10.1); CREATININE 2.13 MG/DL (0.60-1.30)
[2017-10-23 09:32] LABS: TROPONIN I 0.24 NG/ML (0.02-0.05)
--- NOTE | 2017-10-23 09:59 | RADRPT ---
EXAM DATE/TIME: 10/23/2017 09:09 [facility] COMPARISON: No previous studies available for comparison. INDICATIONS : Right leg weakness, syncope. MEDICAL HISTORY : Diabetes mellitus type II. Arthritis. Melanoma. SURGICAL HISTORY : None. ENCOUNTER: Initial ACUITY: 1 day PAIN SCORE: 0/10 LOCATION: Pelvis. FINDINGS: A single frontal view of the pelvis demonstrates no evidence of fracture. The bony pelvic ring is in tact. Bony mineralization is normal. The soft tissues are intact. Advanced degenerative disc disease is identified in the lower lumbar spine. CONCLUSION: 1. Intact bony pelvis and hips. 2. Advanced lower lumbar degenerative disc disease. Tobi Keenan MD on October 23, 2017 at 9:56 Board Certified Radiologist. This report was verified electronically.
--- NOTE | 2017-10-23 10:08 | RADRPT ---
EXAM DATE/TIME: 10/23/2017 09:26 [facility] COMPARISON: CT BRAIN W/O CONTRAST, February 07, 2017, 11:30. INDICATIONS : Syncopal episode. RADIATION DOSE: 36.94 CTDIvol (mGy) MEDICAL HISTORY : Shunt SURGICAL HISTORY : None. ENCOUNTER: Initial ACUITY: 1 day PAIN SCALE: 0/10 LOCATION: cranial TECHNIQUE: Multiple contiguous axial images were obtained of the head. Using automated exposure control and adj ustment of the mA and/or kV according to patient size, radiation dose was kept as low as reasonably a chievable to obtain optimal diagnostic quality images. DICOM format image data is available electro nically for review and comparison. FINDINGS: CEREBRUM: The ventricles remain moderately dilated but are stable. Right frontal ventriculostomy tube is noted. Significant hypodensity is evident throughout the cerebral white matter. There are no findings tristen cteristic of acute infarct, hemorrhage or mass. POSTERIOR FOSSA: The cerebellum and brainstem are intact. The 4th ventricle is midline. The cerebellopontine angle i s unremarkable. EXTRACRANIAL: The visualized portion of the orbits is intact. SKULL: The calvaria is intact. No evidence of skull fracture. CONCLUSION: 1. Stable exam 2. No evidence of acute infarct, hemorrhage mass or edema. 3. Stable ventriculomegaly status post SIGNAL FITTER shunting. Tobi Keenan MD on October 23, 2017 at 9:57 Board Certified Radiologist. This report was verified electronically.
[2017-10-23] MEDS ORDERED: DICL75TA PO (10:20)
[2017-10-23] MEDS ORDERED: ENALAPRILAT 1.25 MG/ML VIAL IV PUSH ONE (10:45)
[2017-10-23] MEDS ORDERED: traMADol HCL 50 MG TAB PO PRN (11:15)
--- NOTE | 2017-10-23 11:29 | HHI.HP ---
HPI Service [facility] Primary Care Physician Kvng Martins MD Admission Diagnosis Fall; RLE Weakness; Elevated Troponin; HTN Chief Complaint: RLE and RUE weakness Travel History International Travel<30 Days: No Contact w/Intl Traveler <30 Da: No Traveled to Known Affected Are: No History of Present Illness Mr. Bui is a pleasant 81 y/o WM with HTN, diabetes mellitus, BPH and hx of NPH s/p VPS placement in 2014. He was previously admitted in January 2017 after falls at home and his VPS was reprogramed to lower settings, to allow for more cerebrospinal fluid drainage and the pt seemed to slowly improve with PT. Pt reports that he had been ambulating fairly well with the assistance of his cane. His states that occasionally he has had temporary weakness in both the LE but that typically resolves with rest. Yesterday evening he had significant weakness in the RLE and required assistance from his along with the use of his cane to ambulate from the living room to the bedroom. His states that he was "dragging" that right leg when she was helping him to the bedroom. During the night last night he got up on his own and walked with his cane to the bathroom and then on his way back his right leg became weak again and he fell to the ground. He was unable to get himself back up. Pt laid on the ground from around 2:30AM to 7:30Am when his found him. She was unable to get him up and they called [facility] to bring him to the hospital. Pt has not had any speech difficulties, palpitations, chest pain, SOB, diaphoresis, increased confusion or mental status changes. He denies any known hx of CVA. Pts reports a questionable hx of A. fib related to when he had surgery remotely but this resolved and he has not had any issues or reoccurrence since that time. Head CT in the ED noted stable exam, no evidence of acute infarct, hemorrhage mass or edema, and stable ventriculomegaly s/p COLLECTOR OF INTERNAL REVENUE shunting. On examination pt has noted RUE and RLE weakness. Pts BP is significantly elevated. He has had issues with elevated BP in the past and was previously prescribed Procardia XL but has not been taking this more recently. Pt is being admitted for further workup and to r/o CVA. Review of Systems Constitutional: DENIES: Fever, Chills, Dizziness Eyes: DENIES: Vision loss Ears, nose, mouth, throat: DENIES: Hearing loss Respiratory: DENIES: Cough, Shortness of breath Cardiovascular: DENIES: Chest pain, Palpitations, Dyspnea on Exertion, Lower Extremity Edema Gastrointestinal: DENIES: Abdominal pain, Diarrhea, Nausea, Vomiting Musculoskeletal: COMPLAINS OF: Back pain (chronic), DENIES: Joint pain, Muscle aches Integumentary: DENIES: Rash Neurologic: COMPLAINS OF: Localized weakness, Poor Balance, DENIES: Headache, Speech Problems Psychiatric: DENIES: Confusion Past Family Social History Past Medical History Hypertension Normal pressure hydrocephalus, status post ventriculoperitoneal shunt by Dr. Robbins 2014, and shunt setting adjusted in 01/[address] Colmenares Lumbar degenerative disc disease BPH Diabetes, type II Hyperlipidemia Past Surgical History Right total knee replacement, performed by Dr. Yung 11/2010 [employer] shunt placed for NPH by Dr. Robbins 02/2015 Reported Medications Tramadol (Tramadol HCl) 50 Mg Tab 50 Mg PO Q8HR PRN Diclofenac Sodium DR (Diclofenac Sodium) 75 Mg Tabdr 75 Mg PO BID Tamsulosin (Tamsulosin HCl) 0.4 Mg Cap 0.4 Mg PO HS Escitalopram (Escitalopram Oxalate) 20 Mg Tab 20 Mg PO DAILY Metformin (Metformin HCl) 1,000 Mg Tab 1,000 Mg PO BIDPC With meals Gabapentin 300 Mg Cap 800 Mg PO TID Finasteride 5 Mg Tab 5 Mg PO DAILY Do not crush. Allergies: Coded Allergies: No Known Allergies (Verified Allergy, Unknown, 10/23/17) Family History Noncontributory Social History Denies any tobacco use (+)Occasional alcohol use, drinks 1-3 beers per week Denies any illicit drug use Pt lives at home with his Physical Exam Vital Signs Vital Signs Date Time Temp Pulse Resp B/P (MAP) Pulse Ox O2 Delivery O2 Flow Rate FiO2 10/23/17 11:12 70 18 176/81 (112) 96 Room Air 10/23/17 10:20 66 18 201/92 (128) 95 Room Air 10/23/17 09:02 65 18 199/93 (128) 69 18 178/77 (110) 75 18 163/70 (101) 10/23/17 08:51 97 Room Air 10/23/17 08:51 67 18 97 Room Air 10/23/17 08:47 97.9 69 18 212/93 (026) 96 Physical Exam GENERAL: This is a well-nourished, well-developed patient, in no apparent distress. SKIN: No rashes, ecchymoses or lesions. Cool and dry. HEENT: Atraumatic. Normocephalic. No temporal or scalp tenderness. No scleral icterus. Airway patent. NECK: Trachea midline, supple, nontender. CARDIO: Regular. RESP: CTA bilaterally. No wheezes, rales, or rhonchi. ABD: +BS, soft, non-tender, nondistended. EXT: No appreciable LE edema NEURO: Awake and alert. Motor and sensory grossly within normal limits. Marked RLE weakness (1/5) compared to LLE and some RUE (3/5) weakness compared to the LUE. Normal speech. Laboratory Laboratory Tests Test 10/23/17 08:50 White Blood Count 7.2 Red Blood Count 3.56 Hemoglobin 11.2 Hematocrit 33.3 Mean Corpuscular Volume 93.6 Mean Corpuscular Hemoglobin 31.3 Mean Corpuscular Hemoglobin Concent 33.5 Red Cell Distribution Width 13.8 Platelet Count 207 Mean Platelet Volume 7.6 Neutrophils (%) (Auto) 68.6 Lymphocytes (%) (Auto) 19.5 Monocytes (%) (Auto) 8.2 Eosinophils (%) (Auto) 3.2 Basophils (%) (Auto) 0.5 Neutrophils # (Auto) 4.9 Lymphocytes # (Auto) 1.4 Monocytes # (Auto) 0.6 Eosinophils # (Auto) 0.2 Basophils # (Auto) 0.0 CBC Comment DIFF FINAL Differential Comment Blood Urea Nitrogen 44 Creatinine 2.13 Random Glucose 125 Calcium Level 9.4 Sodium Level 141 Potassium Level 3.7 Chloride Level 108 Carbon Dioxide Level 23.9 Anion Gap 9 Estimat Glomerular Filtration Rate 30 Total Creatine Kinase 119 Troponin I 0.24 Result Diagram: 10/23/1750 10/23/1750 Imaging Last Impressions Head CT 10/23/17 0849 Signed Impressions: Service Date/Time: September 09:26 - CONCLUSION: 1. Stable exam 2. No evidence of acute infarct, hemorrhage mass or edema. 3. Stable ventriculomegaly status post COLLECTOR OF INTERNAL REVENUE shunting. Tobi Keenan MD Pelvis X-Ray 10/23/17 0000 Signed Impressions: Service Date/Time: September 09:09 - CONCLUSION: 1. Intact bony pelvis and hips. 2. Advanced lower lumbar degenerative disc disease. MD Zachery Pham VTE Risk Assessment Zachery VTE Risk Assessment: Mod/High Risk (score >= 2) Caprini Risk Assessment Model Point Value = 1 Point Value = 2 Point Value = 3 Point Value = 5 Age 41-60 Minor surgery BMI > 25 kg/m2 Swollen legs Varicose veins or History of unexplained or recurrent spontaneous Oral contraceptives or hormone replacement Sepsis (< 1 month) Serious lung disease, including pneumonia (< 1 month) Abnormal pulmonary function Acute myocardial infarction Congestive heart failure (< 1 month) History of inflammatory bowel disease Medical patient at bed rest Age 61-74 Arthroscopic surgery Major open surgery (> 45 min) Laparoscopic surgery (> 45 min) Malignancy Confined to bed (> 72 hours) Immobilizing plaster cast Central venous access Age >= 75 History of VTE Family history of VTE Factor V Leiden Prothrombin [id number] Lupus anticoagulant Anticardiolipin antibodies Elevated serum homocysteine Heparin-induced thrombocytopenia Other congenital or acquired thrombophilia Stroke (< 1 month) Elective arthroplasty Hip, pelvis, or leg fracture Acute spinal cord injury (< 1 month) Prophylaxis Regimen Total Risk Factor Score Risk Level Prophylaxis Regimen 0-1 Low Early ambulation 2 Moderate Order ONE of the following: *Sequential Compression Device (SCD) *Heparin 5000 units SQ BID 3-4 Higher Order ONE of the following medications: *Heparin 5000 units SQ TID *Enoxaparin/Lovenox 40 mg SQ daily (WT < 150 kg, CrCl > 30 mL/min) *Enoxaparin/Lovenox 30 mg SQ daily (WT < 150 kg, CrCl > 10-29 mL/min) *Enoxaparin/Lovenox 30 mg SQ BID (WT < 150 kg, CrCl > 30 mL/min) AND/OR *Sequential Compression Device (SCD) 5 or more Highest Order ONE of the following medications: *Heparin 5000 units SQ TID (Preferred with Epidurals) *Enoxaparin/Lovenox 40 mg SQ daily (WT < 150 kg, CrCl > 30 mL/min) *Enoxaparin/Lovenox 30 mg SQ daily (WT < 150 kg, CrCl > 10-29 mL/min) *Enoxaparin/Lovenox 30 mg SQ BID (WT < 150 kg, CrCl > 30 mL/min) AND *Sequential Compression Device (SCD) Assessment and Plan Problem List: (1) Fall ICD Codes: W19.XXXA - Fall Status: Acute Plan: - Pt is an 81 y/o WM with HTN, diabetes mellitus, BPH and hx of NPH s/p VPS placement in 2014. He was previously admitted in January 2017 after falls at home and his VPS was reprogramed to lower settings, to allow for more cerebrospinal fluid drainage and the pt seemed to slowly improve with PT. Pt reports that he had been ambulating fairly well with the assistance of his cane. His states that occasionally he has had temporary weakness in both the LE but that typically resolves with rest. s/p fall RLE and RUE weakness HTN Elevated troponin I - Yesterday evening pt developed significant weakness in the RLE and required assistance from his along with the use of his cane to ambulate from the living room to the bedroom. His states that he was "dragging" that right leg when she was helping him to the bedroom. During the night last night he got up on his own and walked with his cane to the bathroom and then on his way back his right leg became weak again and he fell to the ground. He was unable to get himself back up. Pt laid on the ground from around 2:30AM to 7:30Am when his found him. - Head CT in the ED noted stable exam, no evidence of acute infarct, hemorrhage mass or edema, and stable ventriculomegaly s/p COL[employer]OR [employer] INTER[employer] REVEN[employer] shunting. - On examination pt has noted RUE and RLE weakness. Pts BP is significantly elevated. He has had issues with elevated BP in the past and was previously prescribed Procardia XL but has not been taking this more recently. - MRI Brain to r/o stroke - Vasotec PRN for systolic BP greater than 220 - Allow for permissive HTN for now, if MRI negative then will likely need to resume antihypertensives - IVF - Telemetry - Consider Carotid US, 2D echo if MRI indicates CVA - FLP in AM - Trend troponin, pt has not had any chest pain, if he did have a stroke, troponin elevation may be related to that - PT/OT evaluation in AM - Supportive care - DVT prophylaxis with SCDs for now NPH s/p VPS - CT with noted stable ventriculomegaly and VPS in place - He had adjustment to the settings of his VPS in 01/2017 by Neurosurgery Diabetes mellitus - NovoLog SSI - Accu checks BPH - Cont. home meds (2) Weakness of extremity ICD Codes: R29.898 - Other symptoms and signs involving the musculoskeletal system Status: Acute Plan: - See above (3) HTN (hypertension) ICD Codes: I10 - Essential (primary) hypertension Status: Chronic Plan: - See above (4) DM2 (diabetes mellitus, type 2) ICD Codes: E11.9 - Type 2 diabetes mellitus Status: Chronic Plan: - See above (5) BPH (benign prostatic hyperplasia) ICD Codes: N40.0 - Benign prostatic hyperplasia without lower urinary tract symptoms Status: Chronic Plan: - See above (6) NPH (normal pressure hydrocephalus) ICD Codes: G91.2 - Normal pressure hydrocephalus Status: Chronic Plan: - See above (7) S/P COL[employer]OR [employer] INTER[employer] REVEN[employer] shunt ICD Codes: Z98.2 - Status post ventriculoperitoneal shunt Status: Acute Assessment and Plan Patient examined. Assessment and plan formulated with Kadie Moctezuma PA-C. I agree with the above. mostly new rle weakness and even paralysis last night per . mild weakness of rue. overall weakness would appear to be better today but still present. pt has nph with shunt. adjustments in January this is presenting different than shunt malfunction MRI to exclude cva. allow the permissive htn until r/o cva. agrees with plan. Physician Certification 2 Midnight Certification Type: Admission for Inpatient Services Order for Inpatient Services The services are ordered in accordance with Medicare regulations or non- Medicare payer requirements, as applicable. In the case of services not specified as inpatient-only, they are appropriately provided as inpatient services in accordance with the 2-midnight benchmark. Estimated LOS (days): 3 3 days is the estimated time the patient will need to remain in the hospital, assuming treatment plan goals are met and no additional complications. Post-Hospital Plan: Not yet determined Problem Qualifiers (1) Fall: Qualified Codes: W19.XXXA - Unspecified fall, initial encounter Kadie Moctezuma Oct 23, 2017 11:29 Donavan Gomez MD Oct 23, 2017 13:12
[2017-10-23] MEDS ORDERED: ENALAPRILAT 1.25 MG/ML VIAL IV PUSH PRN (11:30)
[2017-10-23] MEDS ORDERED: ACETAMINOPHEN 325 MG TAB PO PRN (11:30)
[2017-10-23] MEDS ORDERED: ONDANSETRON HCL 4 MG/2 ML VIAL IV PRN (11:30)
[2017-10-23] MEDS ORDERED: SODIUM CHLORIDE 0.9% FLUSH 10 ML FLUSH IV FLUSH PRN (11:30)
[2017-10-23] MEDS ORDERED: GLUCAGON 1 MG/ML VIAL OTHER PRN (12:00)
[2017-10-23] MEDS ORDERED: DEXTROSE 50% IN WATER 50 ML VIAL(D50) IV PUSH PRN (12:00)
[2017-10-23] MEDS: INSULIN ASPART SUPPLEMENTAL SCALE SQ SCH ×3 (12:00→20:55)
[2017-10-23] MEDS: ASPIRIN 325 MG TAB PO SCH (12:43)
[2017-10-23] MEDS: GABAPENTIN 400 MG CAP PO SCH ×2 (12:43→17:14)
--- NOTE | 2017-10-23 17:27 | RADRPT ---
EXAM DATE/TIME: 10/23/2017 16:37 [facility] COMPARISON: CT BRAIN W/O CONTRAST, October 23, 2017, 9:26. INDICATIONS : CVA. Bilateral extremity weakness. MEDICAL HISTORY : Hypertension. Diabetes mellitus type 2. Hydrocephalus. SURGICAL HISTORY : Total knee replacement, right. LIBRARY CONSULTANT shunt. ENCOUNTER: Initial ACUITY: 1 day PAIN SCORE: 0/10 LOCATION: Head. TECHNIQUE: Multiplanar, multisequence MRI of the brain was performed without contrast. FINDINGS: CEREBRUM: Ventricles are prominent and there appears to be a shunt emanating from the third ventricle and enter ing the right frontoparietal region of the skull. Extensive periventricular and deep white matter tra ct areas of increased T2 flair signal intensity characteristic of significant small vessel ischemic d emyelination. No evidence of midline shift, mass lesion, hemorrhage or acute infarction. No extraax ial fluid collections are seen. The pituitary gland and suprasellar cistern are normal in configurat ion. WHITE MATTER: Severe periventricular deep white matter tracks no vessel ischemic demyelination. POSTERIOR FOSSA: The cerebellum and brainstem are intact. The 4th ventricle is midline. The cerebellopontine angle is unremarkable. The cerebellar tonsils are normal in position. DIFFUSION IMAGING: Punctate area of diffusion restriction in the posterior left basal ganglia. EXTRACRANIAL: The visualized portions of the orbits and paranasal sinuses are unremarkable. CONCLUSION: 1. Punctate area of diffusion restriction in the posterior aspect of the left basal ganglia. Findings may represent an acute or subacute lacunar type infarct. 2. Chronic changes with ventricular prominence and severe periventricular and deep white matter tract s small vessel ischemic demyelination.. 3. LIBRARY CONSULTANT shunt entering from the right frontoparietal region. Tip is in the region of the third ventricl e Martin Marti MD on October 23, 2017 at 17:13 Board Certified Radiologist. This report was verified electronically.
--- NOTE | 2017-10-23 17:40 | RADRPT ---
EXAM DATE/TIME: 10/23/2017 15:55 [facility] COMPARISON: No previous studies available for comparison. INDICATIONS : Shunt valve setting pre and post MRI. MEDICAL HISTORY : None. SURGICAL HISTORY : None. ENCOUNTER: Initial ACUITY: 1 day PAIN SCORE: 0/10 LOCATION: skull. FINDINGS: The shunt valve setting pre-MRI is set to 100 mmH2O. CONCLUSION: 1. Shunt setting pre-MRI is set to 100 mH2O. Fidel Felix MD on October 23, 2017 at 17:35 Board Certified Radiologist. This report was verified electronically.
[2017-10-23] MEDS: TAMSULOSIN HCL 0.4 MG CAP PO SCH (20:54)
[2017-10-23] MEDS: SODIUM CHLOR 0.9% 1000 ML INJ 1,000 ML IV SCH (20:55)
[2017-10-23] MEDS: SODIUM CHLORIDE 0.9% FLUSH 10 ML FLUSH IV FLUSH SCH (20:55)
--- NOTE | 2017-10-23 21:57 | EKG ---
Date Performed: 10/23/2017 Time Performed: 09:00:59 PTAGE: 81 years EKG: Sinus rhythm MINIMAL ST DEPRESSION BORDERLINE ECG PREVIOUS TRACING : 02/07/2017 10.19 \1 DOCTOR: Ronald Shaw Interpretating Date/Time 10/23/2017 21:56:55
[2017-10-23 22:20] LABS: HEMOGLOBIN A1C 6.6 % (4.3-6.0)
[2017-10-24] VITALS (10 sets, daily range): BP systolic 149–187; BP diastolic 75–94; PULSE 80–91; RESP 16–21; TEMP 97.5–99.4; O2SAT 91–96
[2017-10-24 07:34] LABS: BICARBONATE 24.9 MEQ/L (21.0-32.0); CREATININE 2.17 MG/DL (0.60-1.30)
[2017-10-24 07:37] LABS: CHOLESTEROL/ HDL RATIO 4.51 RATIO; HDL CHOLESTEROL 57.8 MG/DL (40.0-60.0)
[2017-10-24] MEDS: INSULIN ASPART SUPPLEMENTAL SCALE SQ SCH ×4 (08:00→20:50)
[2017-10-24] MEDS: ASPIRIN 325 MG TAB PO SCH (08:35)
[2017-10-24] MEDS: GABAPENTIN 400 MG CAP PO SCH ×3 (08:35→17:23)
[2017-10-24] MEDS: ESCITALOPRAM OXALATE 20 MG TAB PO SCH (08:35)
[2017-10-24] MEDS: FINASTERIDE 5 MG TAB PO SCH (08:35)
[2017-10-24] MEDS: SODIUM CHLORIDE 0.9% FLUSH 10 ML FLUSH IV FLUSH SCH ×2 (08:39→20:50)
--- NOTE | 2017-10-24 09:34 | HHI.PR ---
Subjective Remarks Pt feels that the strength in his RUE is slightly better but he did have difficulty with eating his dinner last night. RLE still about the same as yesterday Objective Vitals Vital Signs Date Time Temp Pulse Resp B/P (MAP) Pulse Ox O2 Delivery O2 Flow Rate FiO2 10/24/17 08:04 97.5 80 21 176/84 (114) 93 10/24/17 04:06 98.6 82 18 177/84 (115) 92 10/24/17 00:00 80 10/23/17 23:50 98.4 80 18 120/68 (85) 92 10/23/17 21:05 99.0 78 18 118/60 (79) 94 10/23/17 20:53 21 10/23/17 20:35 73 10/23/17 16:00 97.3 64 20 149/73 (98) 95 10/23/17 11:37 10/23/17 11:30 97.7 68 18 177/80 (112) 98 10/23/17 11:12 70 18 176/81 (112) 96 Room Air 10/23/17 10:20 66 18 201/92 (128) 95 Room Air Result Diagram: 10/23/17 0850 10/24/17 0555 Other Results Laboratory Tests Test 10/23/17 08:50 10/23/17 12:50 10/23/17 18:22 10/24/17 05:55 White Blood Count 7.2 TH/MM3 Red Blood Count 3.56 MIL/MM3 Hemoglobin 11.2 GM/DL Hematocrit 33.3 % Mean Corpuscular Volume 93.6 FL Mean Corpuscular Hemoglobin 31.3 PG Mean Corpuscular Hemoglobin Concent 33.5 % Red Cell Distribution Width 13.8 % Platelet Count 207 TH/MM3 Mean Platelet Volume 7.6 FL Neutrophils (%) (Auto) 68.6 % Lymphocytes (%) (Auto) 19.5 % Monocytes (%) (Auto) 8.2 % Eosinophils (%) (Auto) 3.2 % Basophils (%) (Auto) 0.5 % Neutrophils # (Auto) 4.9 TH/MM3 Lymphocytes # (Auto) 1.4 TH/MM3 Monocytes # (Auto) 0.6 TH/MM3 Eosinophils # (Auto) 0.2 TH/MM3 Basophils # (Auto) 0.0 TH/MM3 CBC Comment DIFF FINAL Differential Comment Blood Urea Nitrogen 44 MG/DL 45 MG/DL Creatinine 2.13 MG/DL 2.17 MG/DL Random Glucose 125 MG/DL 144 MG/DL Calcium Level 9.4 MG/DL 9.0 MG/DL Sodium Level 141 MEQ/L 143 MEQ/L Potassium Level 3.7 MEQ/L 3.9 MEQ/L Chloride Level 108 MEQ/L 110 MEQ/L Carbon Dioxide Level 23.9 MEQ/L 24.9 MEQ/L Anion Gap 9 MEQ/L 8 MEQ/L Estimat Glomerular Filtration Rate 30 ML/MIN 29 ML/MIN Total Creatine Kinase 119 U/L Troponin I 0.24 NG/ML 0.20 NG/ML 0.20 NG/ML Hemoglobin A1c 6.6 % Triglycerides Level 89 MG/DL Cholesterol Level 261 MG/DL LDL Cholesterol 185 MG/DL HDL Cholesterol 57.8 MG/DL Cholesterol/HDL Ratio 4.51 RATIO Imaging Last Impressions Head CT 10/23/17 0849 Signed Impressions: Service Date/Time: September 09:26 - CONCLUSION: 1. Stable exam 2. No evidence of acute infarct, hemorrhage mass or edema. 3. Stable ventriculomegaly status post SMOKE ROOM OPERATOR shunting. Tobi Keenan MD Skull X-Ray 10/23/17 0000 Signed Impressions: Service Date/Time: September 15:55 - CONCLUSION: 1. Shunt setting pre-MRI is set to 100 mH2O. Fidel Felix MD Pelvis X-Ray 10/23/17 0000 Signed Impressions: Service Date/Time: September 09:09 - CONCLUSION: 1. Intact bony pelvis and hips. 2. Advanced lower lumbar degenerative disc disease. Tobi Keenan MD Brain MRI 10/23/17 0000 Signed Impressions: Service Date/Time: September 16:37 - CONCLUSION: 1. Punctate area of diffusion restriction in the posterior aspect of the left basal ganglia. Findings may represent an acute or subacute lacunar type infarct. 2. Chronic changes with ventricular prominence and severe periventricular and deep white matter tracts small vessel ischemic demyelination.. 3. SMOKE ROOM OPERATOR shunt entering from the right frontoparietal region. Tip is in the region of the third ventricle Martin Marti MD Objective Remarks General: NAD, AAOx3 Chest: CTA Cardiac: Regular Abd: +BS, soft ND/NT Ext: RLE weakness, compared to LLE and RUE some weakness (slightly improved) and discoordination A/P Problem List: (1) CVA (cerebral vascular accident) ICD Codes: I63.9 - Cerebral infarction, unspecified Status: Acute Plan: Pt is an 81 y/o WM with HTN, diabetes mellitus, BPH and hx of NPH s/p VPS placement in 2014. He was previously admitted in January 2017 after falls at home and his VPS was reprogramed to lower settings, to allow for more cerebrospinal fluid drainage and the pt seemed to slowly improve with PT. Pt reports that he had been ambulating fairly well with the assistance of his cane. His states that occasionally he has had temporary weakness in both the LE but that typically resolves with rest. 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 His states that he was "dragging" that right leg when she was helping him to the bedroom. During the night last night he got up on his own and walked with his cane to the bathroom and then on his way back his right leg became weak again and he fell to the ground. He was unable to get himself back up. Pt laid on the ground from around 2:30AM to 7:30Am when his found him. - Head CT in the ED noted stable exam, no evidence of acute infarct, hemorrhage mass or edema, and stable ventriculomegaly s/p SMOKE ROOM OPERATOR shunting. - On examination pt has noted RUE and RLE weakness. Pts BP is significantly elevated. He has had issues with elevated BP in the past and was previously prescribed Procardia XL but has not been taking this more recently. - MRI Brain (10/23) --> Punctate area of diffusion restriction in the posterior aspect of the left basal ganglia. Findings may represent an acute or subacute lacunar type infarct. Chronic changes with ventricular prominence and severe periventricular and deep white matter tracts small vessel ischemic demyelination. SMOKE ROOM OPERATOR shunt entering from the right frontoparietal region. Tip is in the region of the third ventricle - Vasotec PRN for systolic BP greater than 220 - Allow for permissive HTN, if BP remains elevated will need to initiate BP meds - IVF - Telemetry - Carotid US - 2D echo - Pt with elevated total cholesterol and LDL but pts reports that he had rhabdomyolysis related to statins and does not want any of these medications started - Cont. ASA - Troponin was flat, pt has not had any chest pain, troponin elevation may be related to the CVA - PT/OT evaluation - Supportive care - DVT prophylaxis with SCDs for now NPH s/p VPS - CT with noted stable ventriculomegaly and VPS in place - He had adjustment to the settings of his VPS in 01/2017 by Neurosurgery Diabetes mellitus - NovoLog SSI - Accu checks BPH - Cont. home meds (2) Fall ICD Codes: W19.XXXA - Fall Status: Acute Plan: - See above (3) Weakness of extremity ICD Codes: R29.898 - Other symptoms and signs involving the musculoskeletal system Status: Acute Plan: - See above (4) HTN (hypertension) ICD Codes: I10 - Essential (primary) hypertension Status: Chronic Plan: - See above (5) DM2 (diabetes mellitus, type 2) ICD Codes: E11.9 - Type 2 diabetes mellitus Status: Chronic Plan: - See above (6) BPH (benign prostatic hyperplasia) ICD Codes: N40.0 - Benign prostatic hyperplasia without lower urinary tract symptoms Status: Chronic Plan: - See above (7) NPH (normal pressure hydrocephalus) ICD Codes: G91.2 - Normal pressure hydrocephalus Status: Chronic Plan: - See above (8) S/P SMOKE ROOM OPERATOR shunt ICD Codes: Z98.2 - Status post ventriculoperitoneal shunt Status: Acute Assessment and Plan Patient examined. Assessment and plan formulated with Kadie Moctezuma PA-C. I agree with the above. left bg acute cva with right ue and right le weakness. improved permissive htn unable to tolerate statins. rhabdo in past cont asa tele to eval for afib. pt/ot/neuro consult has been on ivf Problem Qualifiers (1) CVA (cerebral vascular accident): (2) Fall: Qualified Codes: W19.XXXA - Unspecified fall, initial encounter Kadie Moctezuma Oct 24, 2017 09:34 Donavan Gomez MD Oct 24, 2017 10:28
[2017-10-24] MEDS: SODIUM CHLOR 0.9% 1000 ML INJ 1,000 ML IV SCH (11:30)
--- NOTE | 2017-10-24 14:07 | RADRPT ---
EXAM DATE/TIME: 10/24/2017 10:40 [facility] COMPARISON: No previous studies available for comparison. EXTERNAL COMPARISON : [facility], CT Chest, November 29, 2015 INDICATIONS : Cerebrovascular accident. MEDICAL HISTORY : Hypertension. Diabetes mellitus type 2. Hydrocephalus. SURGICAL HISTORY : Right total knee replacement. ENCOUNTER: Initial ACUITY: 1 day PAIN SCORE: 0/10 LOCATION: Bilateral neck PEAK SYSTOLIC VELOCITIES (cm/sec): ICA/CCA RATIO: Right: 0.7 Left: 1.0 ICA: Right: 62 Left: 112 CCA: Right: 95 Left: 111 ECA: Right: 103 Left: 145 VERTEBRAL: Right: 67 antegrade Left: 61 antegrade Elevated flow velocities and ICA/CCA ratios have been found to correlate with increased degrees of vessel stenosis, calculated as percentage of diameter relative to a normal segment of distal ICA/CCA FINDINGS: RIGHT CAROTID: No significant stenosis is visualized. The waveforms are within normal limits. LEFT CAROTID: No significant stenosis is visualized. The waveforms are within normal limits. VERTEBRAL ARTERIES: Antegrade flow is seen in both vertebral arteries. MISCELLANEOUS: None. CONCLUSION: No evidence of flow-limiting carotid stenosis. Henrry Coreas MD on October 24, 2017 at 14:01 Board Certified Radiologist. This report was verified electronically.
--- NOTE | 2017-10-24 16:43 | MB ---
cc: ARIANNA TIPTON M.D. DATE OF CONSULTATION: 10/24/2017. REASON FOR CONSULTATION: Stroke. HISTORY OF PRESENT ILLNESS: A pleasant 81-year-old man with a history of hypertension, diabetes, benign prostate hypertrophy, normal pressure hydrocephalus status post SECTION LEADER shunt placement in 2014 previously admitted in January of this year after a fall. His SECTION LEADER shunt was reprogrammed to a lower setting and he improved slowly with physical therapy. Apparently yesterday he had significant weakness in the right leg even with the use of his cane and was dragging the leg. He was brought in for evaluation. He had actually fallen at night and lay on the floor from 2:30 in the morning to 7:30 in the morning when he was found and [facility] had brought him in. He has a history of a questionable atrial fibrillation related to when he had surgery remotely but that had resolved. Currently he is still having a little bit of weakness he states when he is trying to eat with his right hand and his leg has improved but still weak. PAST MEDICAL HISTORY: 1. Hypertension. 2. Normal pressure hydrocephalus. 3. Ventriculoperitoneal shunt. 4. Lumbar disc disease. 5. Benign prostate hypertrophy. 6. Diabetes. 7. Hyperlipidemia. HOME MEDICATIONS: 1. Tramadol. 2. Baclofen. 3. Tamsulosin. 4. Citalopram. 5. Metformin. 6. Gabapentin. 7. Finasteride. ALLERGIES: NONE REPORTED. FAMILY HISTORY: Noncontributory. SOCIAL HISTORY: Occasional alcohol, beer. Lives with his . No drugs. No cigarettes. PHYSICAL EXAMINATION: VITAL SIGNS: Temperature 98.6, pulse 85, respiratory rate 21, blood pressure 149/75, satting at 94% on room air. NECK: His neck is supple. No appreciable bruits. HEART: Currently regular. NEUROLOGICAL EXAMINATION: He is awake and alert. He is fluent. He is hypophonic. Pupils reactive. Face symmetrical. Motor-marley he does exhibit mild weakness in the right arm but more so the right leg. There is a leg lag. He has decreased coordination in the right arm and leg. Toes - withdraws on the right and down on the left. Left side is intact. Sensory - he states he feels the same to light touch and temperature on the right. Gait is withheld. [id number] - no past pointing, just slower on the right. IMAGING STUDIES: Carotid ultrasound without any hemodynamic significant stenosis. MRI shows small area of diffusion in the left basal ganglia posterior aspect consistent with acute / subacute lacune and there is also a SECTION LEADER shunt in the right frontoparietal region. There is some vascular disease. IMPRESSION: Left basal ganglionic lacunar infarct in a patient with multiple risk factors. RECOMMENDATIONS: 1. Recommend getting a lipid panel. 2. Blood pressure needs to be maintained normotensive. 3. Place him on baby aspirin. 4. Check his lipids. 5. Start him on a statin if indicated. 6. Physical therapy and occupational therapy. 7. If not ordered, then he would need an echocardiogram as well. 8. Recommend outpatient Holter and possible loop recorder given his questionable history of atrial fibrillation in the past. 9. Continue current care. MD STEVE Hines/QI /3:17 PM /4:17 PM
[2017-10-24] MEDS: TAMSULOSIN HCL 0.4 MG CAP PO SCH (20:50)
[2017-10-24] MEDS ORDERED: ATORVASTATIN 20 MG TAB PO SCH (21:00)
[2017-10-25] VITALS: PULSE 91
[2017-10-25] MEDS: SODIUM CHLOR 0.9% 1000 ML INJ 1,000 ML IV SCH (01:34)
[2017-10-25 04:00] VITALS: PULSE 87
[2017-10-25 04:07] VITALS: BP 177/89; PULSE 73; RESP 16; TEMP 98.4; O2SAT 92
[2017-10-25] MEDS: INSULIN ASPART SUPPLEMENTAL SCALE SQ SCH ×2 (08:00→12:00)
[2017-10-25 08:02] VITALS: BP 189/81; PULSE 80; RESP 20; TEMP 98.9; O2SAT 94
[2017-10-25] MEDS: SODIUM CHLORIDE 0.9% FLUSH 10 ML FLUSH IV FLUSH SCH (09:00)
[2017-10-25] MEDS ORDERED: LISINOPRIL 5 MG TAB PO SCH (09:00)
[2017-10-25] MEDS: FINASTERIDE 5 MG TAB PO SCH (09:33)
[2017-10-25] MEDS: GABAPENTIN 400 MG CAP PO SCH ×2 (09:33→12:52)
[2017-10-25] MEDS: ESCITALOPRAM OXALATE 20 MG TAB PO SCH (09:34)
[2017-10-25] MEDS: ASPIRIN 325 MG TAB PO SCH (09:34)
--- NOTE | 2017-10-25 10:13 | HHI.PR ---
Subjective Remarks doing well. no comlplaints Objective Vitals heart reg lung cta abd s/nt ext moves right arm and leg while lying in bed easily. Vital Signs Date Time Temp Pulse Resp B/P (MAP) Pulse Ox O2 Delivery O2 Flow Rate FiO2 10/25/17 08:02 98.9 80 20 189/81 (117) 94 10/25/17 06:06 Room Air 10/25/17 04:07 98.4 73 16 177/89 (118) 92 10/25/17 04:00 87 10/25/17 00:00 91 10/24/17 23:15 99.4 91 16 187/88 (121) 91 10/24/17 20:00 82 10/24/17 20:00 98.8 83 16 184/89 (120) 95 10/24/17 18:19 96 21 10/24/17 16:02 98.7 80 20 175/94 (121) 96 10/24/17 12:03 98.6 85 21 149/75 (99) 94 10/24/17 12:00 85 10/24/17 10:25 87 Result Diagram: 10/23/17 0850 10/24/17 0555 Imaging Last Impressions Head CT 10/23/17 0849 Signed Impressions: Service Date/Time: September 09:26 - CONCLUSION: 1. Stable exam 2. No evidence of acute infarct, hemorrhage mass or edema. 3. Stable ventriculomegaly status post PEDIATRIC SOCIAL WORKER shunting. Tobi Keenan MD Skull X-Ray 10/23/17 0000 Signed Impressions: Service Date/Time: September 15:55 - CONCLUSION: 1. Shunt setting pre-MRI is set to 100 mH2O. Fidel Felix MD Pelvis X-Ray 10/23/17 0000 Signed Impressions: Service Date/Time: September 09:09 - CONCLUSION: 1. Intact bony pelvis and hips. 2. Advanced lower lumbar degenerative disc disease. Tobi Keenan MD Brain MRI 10/23/17 0000 Signed Impressions: Service Date/Time: September 16:37 - CONCLUSION: 1. Punctate area of diffusion restriction in the posterior aspect of the left basal ganglia. Findings may represent an acute or subacute lacunar type infarct. 2. Chronic changes with ventricular prominence and severe periventricular and deep white matter tracts small vessel ischemic demyelination.. 3. PEDIATRIC SOCIAL WORKER shunt entering from the right frontoparietal region. Tip is in the region of the third ventricle Martin Marti MD A/P Problem List: (1) CVA (cerebral vascular accident) ICD Codes: I63.9 - Cerebral infarction, unspecified Status: Acute Plan: Pt is an 81 y/o WM with HTN, diabetes mellitus, BPH and hx of NPH s/p VPS placement in 2014. He was previously admitted in January 2017 after falls at home and his VPS was reprogramed to lower settings, to allow for more cerebrospinal fluid drainage and the pt seemed to slowly improve with PT. Pt reports that he had been ambulating fairly well with the assistance of his cane. His states that occasionally he has had temporary weakness in both the LE but that typically resolves with rest. Left basal ganglia CVA s/p fall RLE and RUE weakness HTN Elevated troponin I - pt developed significant weakness in the RLE and required assistance from his along with the use of his cane to ambulate from the living room to the bedroom. His states that he was "dragging" that right leg when she was helping him to the bedroom. During the night last night he got up on his own and walked with his cane to the bathroom and then on his way back his right leg became weak again and he fell to the ground. He was unable to get himself back up. Pt laid on the ground from around 2:30AM to 7:30Am when his found him. - Head CT in the ED noted stable exam, no evidence of acute infarct, hemorrhage mass or edema, and stable ventriculomegaly s/p PEDIATRIC SOCIAL WORKER shunting. - On examination pt has noted RUE and RLE weakness. Pts BP is significantly elevated. He has had issues with elevated BP in the past and was previously prescribed Procardia XL but has not been taking this more recently. - MRI Brain (10/23) --> Punctate area of diffusion restriction in the posterior aspect of the left basal ganglia. Findings may represent an acute or subacute lacunar type infarct. Chronic changes with ventricular prominence and severe periventricular and deep white matter tracts small vessel ischemic demyelination. PEDIATRIC SOCIAL WORKER shunt entering from the right frontoparietal region. Tip is in the region of the third ventricle Pt overall doing well. no afib noted on telemetry since admission. ok to start lowering bp now per neurology. PT recommended snf and pt ok with it. will start bp meds and titrate at snf. cont asa. f/u pcp and neurology pt and refusing any statin type drug due to rhabdo in past NPH s/p VPS - CT with noted stable ventriculomegaly and VPS in place - He had adjustment to the settings of his VPS in 01/2017 by Neurosurgery Diabetes mellitus - NovoLog SSI - Accu checks BPH - Cont. home meds (2) Fall ICD Codes: W19.XXXA - Fall Status: Acute Plan: - See above (3) Weakness of extremity ICD Codes: R29.898 - Other symptoms and signs involving the musculoskeletal system Status: Acute Plan: - See above (4) HTN (hypertension) ICD Codes: I10 - Essential (primary) hypertension Status: Chronic Plan: - See above (5) DM2 (diabetes mellitus, type 2) ICD Codes: E11.9 - Type 2 diabetes mellitus Status: Chronic Plan: - See above (6) BPH (benign prostatic hyperplasia) ICD Codes: N40.0 - Benign prostatic hyperplasia without lower urinary tract symptoms Status: Chronic Plan: - See above (7) NPH (normal pressure hydrocephalus) ICD Codes: G91.2 - Normal pressure hydrocephalus Status: Chronic Plan: - See above (8) S/P PEDIATRIC SOCIAL WORKER shunt ICD Codes: Z98.2 - Status post ventriculoperitoneal shunt Status: Acute Problem Qualifiers (1) CVA (cerebral vascular accident): (2) Fall: Qualified Codes: W19.XXXA - Unspecified fall, initial encounter Donavan Gomez MD Oct 25, 2017 10:13
[2017-10-25] MEDS ORDERED: TRAM50TA PO (10:19)
[2017-10-25] MEDS ORDERED: LISI-519 PO (10:19)
[2017-10-25] MEDS ORDERED: NEUR400C PO (10:19)
[2017-10-25] MEDS ORDERED: ASA325 PO (10:33)
--- NOTE | 2017-10-25 10:35 | HHI.DCPOC ---
Discharge Care Plan Diagnosis: (1) CVA (cerebral vascular accident) (2) NPH (normal pressure hydrocephalus) (3) DM2 (diabetes mellitus, type 2) (4) BPH (benign prostatic hyperplasia) (5) HTN (hypertension) (6) S/P BACKEND PYTHON DEVELOPER shunt Goals to Promote Your Health * To prevent worsening of your condition and complications * To maintain your health at the optimal level Directions to Meet Your Goals Take your medications as prescribed Follow your dietary instruction Follow activity as directed Keep your appointments as scheduled Take your immunizations and boosters as scheduled If your symptoms worsen call your PCP, if no PCP go to Urgent Care Center or Emergency Room Smoking is Dangerous to Your Health. Avoid second hand smoke Call the 24-hour hour crisis hotline for domestic abuse at Donavan Gomez MD Oct 25, 2017 10:35
--- NOTE | 2017-10-25 10:41 | HHI.DS ---
Discharge Summary Admission Date Oct 23, 2017 at 10:36 Discharge Date: Oct 25, 2017 Admitting Diagnosis Fall; RLE Weakness; Elevated Troponin; HTN (1) CVA (cerebral vascular accident) Diagnosis: Principal ICD Codes: I63.9 - Cerebral infarction, unspecified Status: Acute (2) Fall Diagnosis: Principal ICD Codes: W19.XXXA - Fall Status: Acute (3) Weakness of extremity Diagnosis: Principal ICD Codes: R29.898 - Other symptoms and signs involving the musculoskeletal system Status: Acute (4) HTN (hypertension) Diagnosis: Secondary ICD Codes: I10 - Essential (primary) hypertension Status: Chronic (5) DM2 (diabetes mellitus, type 2) Diagnosis: Secondary ICD Codes: E11.9 - Type 2 diabetes mellitus Status: Chronic (6) BPH (benign prostatic hyperplasia) ICD Codes: N40.0 - Benign prostatic hyperplasia without lower urinary tract symptoms Status: Chronic (7) NPH (normal pressure hydrocephalus) Diagnosis: Secondary ICD Codes: G91.2 - Normal pressure hydrocephalus Status: Chronic (8) S/P [employer] shunt Diagnosis: Secondary ICD Codes: Z98.2 - Status post ventriculoperitoneal shunt Status: Acute Brief History Mr. Bui is a pleasant 81 y/o WM with HTN, diabetes mellitus, BPH and hx of NPH s/p VPS placement in 2014. He was previously admitted in January 2017 after falls at home and his VPS was reprogramed to lower settings, to allow for more cerebrospinal fluid drainage and the pt seemed to slowly improve with PT. Pt reports that he had been ambulating fairly well with the assistance of his cane. His states that occasionally he has had temporary weakness in both the LE but that typically resolves with rest. Yesterday evening he had significant weakness in the RLE and required assistance from his along with the use of his cane to ambulate from the living room to the bedroom. His states that he was "dragging" that right leg when she was helping him to the bedroom. During the night last night he got up on his own and walked with his cane to the bathroom and then on his way back his right leg became weak again and he fell to the ground. He was unable to get himself back up. Pt laid on the ground from around 2:30AM to 7:30Am when his found him. She was unable to get him up and they called [facility] to bring him to the hospital. Pt has not had any speech difficulties, palpitations, chest pain, SOB, diaphoresis, increased confusion or mental status changes. He denies any known hx of CVA. Pts reports a questionable hx of A. fib related to when he had surgery remotely but this resolved and he has not had any issues or reoccurrence since that time. Head CT in the ED noted stable exam, no evidence of acute infarct, hemorrhage mass or edema, and stable ventriculomegaly s/p [employer] shunting. On examination pt has noted RUE and RLE weakness. Pts BP is significantly elevated. He has had issues with elevated BP in the past and was previously prescribed Procardia XL but has not been taking this more recently. Pt is being admitted for further workup and to r/o CVA. CBC/BMP: 10/23/17 0850 10/24/17 0555 Significant Findings Laboratory Tests Test 10/23/17 08:50 10/23/17 12:50 10/23/17 18:22 10/24/17 05:55 Red Blood Count 3.56 MIL/MM3 (4.50-5.90) Hemoglobin 11.2 GM/DL (13.0-17.0) Hematocrit 33.3 % (39.0-51.0) Monocytes (%) (Auto) 8.2 % (0.0-8.0) Blood Urea Nitrogen 44 MG/DL (7-18) 45 MG/DL (7-18) Creatinine 2.13 MG/DL (0.60-1.30) 2.17 MG/DL (0.60-1.30) Random Glucose 125 MG/DL (74-106) 144 MG/DL (74-106) Chloride Level 108 MEQ/L (98-107) 110 MEQ/L (98-107) Estimat Glomerular Filtration Rate 30 ML/MIN (>89) 29 ML/MIN (>89) Troponin I 0.24 NG/ML (0.02-0.05) 0.20 NG/ML (0.02-0.05) 0.20 NG/ML (0.02-0.05) Hemoglobin A1c 6.6 % (4.3-6.0) Cholesterol Level 261 MG/DL (120-200) LDL Cholesterol 185 MG/DL (0-99) Hospital Course (1) CVA (cerebral vascular accident) Pt is an 81 y/o WM with HTN, diabetes mellitus, BPH and hx of NPH s/p VPS placement in 2014. He was previously admitted in January 2017 after falls at home and his VPS was reprogramed to lower settings, to allow for more cerebrospinal fluid drainage and the pt seemed to slowly improve with PT. Pt reports that he had been ambulating fairly well with the assistance of his cane. His states that occasionally he has had temporary weakness in both the LE but that typically resolves with rest. 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 His states that he was "dragging" that right leg when she was helping him to the bedroom. During the night last night he got up on his own and walked with his cane to the bathroom and then on his way back his right leg became weak again and he fell to the ground. He was unable to get himself back up. Pt laid on the ground from around 2:30AM to 7:30Am when his found him. - Head CT in the ED noted stable exam, no evidence of acute infarct, hemorrhage mass or edema, and stable ventriculomegaly s/p [employer] shunting. - On examination pt has noted RUE and RLE weakness. Pts BP is significantly elevated. He has had issues with elevated BP in the past and was previously prescribed Procardia XL but has not been taking this more recently. - MRI Brain (10/23) --> Punctate area of diffusion restriction in the posterior aspect of the left basal ganglia. Findings may represent an acute or subacute lacunar type infarct. Chronic changes with ventricular prominence and severe periventricular and deep white matter tracts small vessel ischemic demyelination. [employer] shunt entering from the right frontoparietal region. Tip is in the region of the third ventricle Pt seen by neurology and ok for d/c. cont asa. bp control will start with lisinipril and ask for titration in snf as needed. prn meds given. unable to take statin due to rhabdo per pt/. no afib on tele while in hospital. 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 ssi at snf and will need to be placed on alternative therapy at snf or by pcp in f/u. ?glipizide might be a good option. hgba1c is 6.6 at present. NPH s/p VPS - CT with noted stable ventriculomegaly and VPS in place - He had adjustment to the settings of his VPS in 01/2017 by Neurosurgery Diabetes mellitus - NovoLog SSI - Accu checks BPH - Cont. home meds (2) Fall ICD Codes: W19.XXXA - Fall Status: Acute Plan: - See above (3) Weakness of extremity ICD Codes: R29.898 - Other symptoms and signs involving the musculoskeletal system Status: Acute Plan: - See above (4) HTN (hypertension) ICD Codes: I10 - Essential (primary) hypertension Status: Chronic Plan: - See above (5) DM2 (diabetes mellitus, type 2) ICD Codes: E11.9 - Type 2 diabetes mellitus Status: Chronic Plan: - See above (6) BPH (benign prostatic hyperplasia) ICD Codes: N40.0 - Benign prostatic hyperplasia without lower urinary tract symptoms Status: Chronic Plan: - See above (7) NPH (normal pressure hydrocephalus) ICD Codes: G91.2 - Normal pressure hydrocephalus Status: Chronic Plan: - See above (8) S/P [employer] shunt Pt Condition on Discharge: Stable Discharge Disposition: Discharge to SNF Discharge Instructions DIET: Follow Instructions for: Diabetic Diet Activities you can perform: Regular-No Restrictions Follow up Referrals: Neurology - 2 Weeks with An Fierro MD PCP Follow-up - [address] watkins New Medications: Aspirin (Px Aspirin) 325 Mg Tab 325 MG PO DAILY for cva, #180 TAB Gabapentin (Neurontin) 400 Mg Cap 400 MG PO TID for Pain Management for 30 Days, CAP Lisinopril (Lisinopril) 5 Mg Tab 5 MG PO Q12HR for Blood Pressure Management, #60 TAB Continued Medications: Escitalopram (Escitalopram) 20 Mg Tab 20 MG PO DAILY, #30 TAB 0 Refills Finasteride (Finasteride) 5 Mg Tab 5 MG PO DAILY for Manage Prostate Problems, #30 TAB 0 Refills Do not crush. Tamsulosin (Tamsulosin) 0.4 Mg Cap 0.4 MG PO HS for Manage Prostate Problems, #30 CAP 0 Refills Tramadol (Tramadol) 50 Mg Tab 50 MG PO Q8HR PRN for PAIN, #20 TAB 0 Refills (This prescription has been renewed) Discontinued Medications: Diclofenac Sodium DR (Diclofenac Sodium DR) 75 Mg Tabdr 75 MG PO BID, #60 TAB 0 Refills Gabapentin (Gabapentin) 300 Mg Cap 800 MG PO TID, #90 CAP 0 Refills Metformin (Metformin) 1,000 Mg Tab 1000 MG PO BIDPC for Blood Sugar Management, #60 TAB 0 Refills With meals Donavan Gomez MD Oct 25, 2017 10:41
[2017-10-25 12:00] VITALS: PULSE 91
[2017-10-25] MEDS ORDERED: cloNIDine HCL 0.1 MG TAB PO PRN (12:00)
[2017-10-25 12:02] VITALS: BP 192/78; PULSE 89; RESP 20; TEMP 98.8; O2SAT 94
== END 2017-10-25 16:18 | DRG 65 ==
LOC: NEPC 08:38 → NEDA 10:36 → N04B 11:51
PROVIDERS: ADMIT Hospitalist; ATTEND Hospitalist
DX: I63.9 Cerebral infarction, unspecified (principal); N18.4 Chronic kidney disease, stage 4 (severe); G91.2 (Idiopathic) normal pressure hydrocephalus; E11.22 Type 2 diabetes mellitus with diabetic chronic kidney disease; G81.94 Hemiplegia, unspecified affecting left nondominant side; G37.8 Other specified demyelinating diseases of central nervous system; R74.8 Abnormal levels of other serum enzymes; N40.0 Benign prostatic hyperplasia without lower urinary tract symptoms; M51.36 Other intervertebral disc degeneration, lumbar region; I12.9 Hypertensive chronic kidney disease with stage 1 through stage 4 chronic kidney disease, or unspecified chronic kidney disease; E78.5 Hyperlipidemia, unspecified; M19.90 Unspecified osteoarthritis, unspecified site; F32.9 Major depressive disorder, single episode, unspecified; F41.9 Anxiety disorder, unspecified; W19.XXXA Unspecified fall, initial encounter; Z79.84 Long term (current) use of oral hypoglycemic drugs; Z85.820 Personal history of malignant melanoma of skin; Z96.651 Presence of right artificial knee joint; Z98.2 Presence of cerebrospinal fluid drainage device
CPT/HCPCS: 70250; 70450; 70551; 72170; 80048; 80061; 82550; 82948; 83036; 84484; 85025; 93005; 93880; J1815; J7030